=== PATIENT | male | born 1955 | race Caucasian/White ===

== ENCOUNTER 2021-09-28 09:45 | Inpatient (IN) ==
[2021-09-28] MEDS ORDERED: CEFEPIME 2,000 MG/20 ML VIAL IV STA (10:28)
[2021-09-28] MEDS ORDERED: SODIUM CHLORIDE 0.9% 1000ML 1,000 ML IV ONE (10:28)
--- NOTE | 2021-09-28 10:40 | Emergency Department Note ---
Impression & Plan Weakness, Fever, Anemia, Acute UTI, COVID-19 ED Provider Note NAME: JACK OCHOA AGE: 65 SEX: M : 1955 ARRIVES VIA: Ambulance INFORMANT: [Patient][ems, nursing] ED PROVIDER(S): [Bentley Garrett MD] CHIEF COMPLAINT: Weakness, fever HISTORY OF PRESENT ILLNESS: The patient is a 65-year-old male with a chronic indwelling Donovan catheter. He apparently started having a fever yesterday. He was weak yesterday as well. His symptoms continued today. EMS did give the patient some oral Tylenol for a temperature of 100.5. He also received a 500 cc saline bolus prior to arrival. The patient is a very poor historian. He does deny pain or shortness of breath. He admits to feeling weak. Given the mental state, no further history obtainable. There was no one with him at the bedside during my evaluation. As per the nursing staff, the patient's Donovan catheter was recently changed. REVIEW OF SYSTEMS: Unobtainable given the mental state. PMHx/PSHx: See Below SOCIAL HISTORY: See Below. PHYSICAL EXAM: GENERAL: Patient is in no acute distress. HEENT: No acute trauma, normocephalic atraumatic, mucous membranes moist, no nasal congestion, no scleral icterus. NECK: No stridor, no adenopathy, no meningismus, trachea is midline. LUNGS: Clear to auscultation bilaterally, no wheeze, no rhonchi, breath sounds equal. Moist cough noted. HEART: Without murmurs gallops or rubs, regular rate and rhythm. ABDOMEN: Soft, nontender, bowel sounds positive, no hernias, no peritonitis. Donovan catheter noted. EXTREMITIES: No cyanosis or edema, full range of motion of all the joints without pain or difficulty, no signs for acute trauma. NEUROLOGIC: Poor historian, no focal motor deficits. Awake and alert. SKIN: No rash, no jaundice, no diaphoresis. Rectal: Brown stool, heme-negative. DIFFERENTIAL DIAGNOSIS: Sepsis, UTI, COVID-19, influenza, pneumonia, metabolic abnormality, electrolyte abnormalities, cardiac sources, cellulitis, bacteremia, intracerebral event, toxicologic etiology, neurologic event, as well as other pathologies. EMERGENCY DEPARTMENT COURSE/PROCEDURES: ECG: Indication was weakness. The ECG shows a sinus rhythm with a first- degree AV block. There is a right bundle branch block. The rate is 79. There is no ST elevation, no PVCs. The QTc is 449. Continuous Cardiac Monitoring: An order was placed for continuous cardiac monitoring. The monitor shows a rate of 78 with sinus rhythm with a first- degree AV block. Critical Care Note: I have personally spent 44 minutes of critical care time in the direct management of this patient. This includes bedside care, interpretation of diagnostic studies, and testing, discussion with consultants, patient, and family members, and other required patient management activities. This 44 minutes is in excess of all separately billable procedures. MEDICAL DECISION MAKING: There is no leukocytosis. The patient is anemic and this is a 2 or three-point drop for the patient. Rectal exam was performed and the stool was brown and heme-negative. The patient has a lower platelet count, this has been documented before. No coagulopathy. There is some renal insufficiency but this is baseline looking back at previous testing. Lactic acid level is not elevated making severe sepsis less likely. Alk phos slightly elevated but the remaining liver enzymes were unremarkable. ECG shows a sinus rhythm, no obvious acute ischemia. Cardiac enzyme testing x1 is not consistent with acute cardiac injury. Urinalysis is consistent with infection. Anaplasmosis and Babesia smears were negative. Lyme disease testing returned negative. COVID test returned positive. Influenza and RSV test returned negative. Chest x-ray did not show pneumonia or CHF. The patient presents with fever and weakness. He appears to have a UTI as well as COVID-19. Both of course could be causing his issues. The patient received IV saline, 1 L, he was given IV cefepime. I did speak with the patient and his family, I spoke with case management. The patient is in need of a hospital stay. The on-call hospitalist was consulted. 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 Herrera Status post exploratory laparotomy 2005 after fall from roof with multiple injuries Status post tracheostomy Family History Mother Stroke Kidney disease Father Coronary heart disease Sister Diabetes Sister No problems noted. Social History Smoking Status: Current every day smoker Tobacco Type: Cigarettes Cigarettes Per Day: 1/2 pack per day; Second Hand Exposure: Yes; Hx Alcohol Use: No Hx Substance Use: No Preferred Language: Serbian Communication Ability: Effective Visual Impairment: No Limitations Research And Development Tester Required: No Beliefs That Will Affect Care: None marital status: Current Living Situation: Spouse Current Living Situation Comment: LIVES [facility] AND SON current occupational status: disabled Feels Safe at Home: Yes Assistive Devices: Walker Allergies Allergies Allergy/AdvReac Type Severity Reaction Status Date / Time varenicline [From Chantix] Allergy Intermediate Rash Verified 09/28/21 12:53 amlodipine Allergy Unknown UNKNOWN Verified 09/28/21 12:53 bupropion Allergy Unknown UNKNOWN Verified 09/28/21 12:53 losartan Allergy Unknown UNKNOWN Verified 09/28/21 12:53 niacin Allergy Unknown UNKNOWN Verified 09/28/21 12:53 nicotine Allergy Unknown UNKNOWN Verified 09/28/21 12:53 adhesive AdvReac Mild Erythema Verified 09/28/21 12:53 Home Meds Home Medications Medication Instructions Recorded Confirmed amlodipine 5 mg tablet 5 mg PO DAILY 05/15/18 09/28/21 atenolol 50 mg tablet 100 mg PO DAILY 05/15/18 09/28/21 atorvastatin 80 mg tablet 80 mg PO HS 05/15/18 09/28/21 clopidogrel 75 mg tablet (Plavix) 75 mg PO DAILY 05/15/18 09/28/21 lisinopril 40 mg tablet 40 mg PO DAILY 05/15/18 09/28/21 potassium chloride 20 mEq 20 meq PO DAILY 05/15/18 09/28/21 tablet,extended release prazosin 5 mg capsule 5 mg PO HS 05/15/18 09/28/21 trazodone 50 mg tablet 150 mg PO HS 05/15/18 09/28/21 cholecalciferol (vitamin D3) 25 2,000 unit PO DAILY 06/18/19 09/28/21 mcg (1,000 unit) tablet (Vitamin D3) cranberry 500 mg capsule 500 mg PO BID 08/24/20 09/28/21 insulin glargine 100 unit/mL 35 unit SUBCUT DAILY ml 08/24/20 09/28/21 subcutaneous solution (Lantus U-100 Insulin) venlafaxine 75 mg tablet 225 mg PO QAM tab 09/24/20 09/28/21 acetaminophen 325 mg tablet 650 mg PO QID PRN 09/28/21 09/28/21 ciclopirox 0.77 % topical cream 1 applic TOPICAL BID 09/28/21 09/28/21 dextrose 1 gram chewable tablet 4 g PO USEASDIRECTD 09/28/21 09/28/21 (Glucose Bits) fluocinonide 0.05 % topical 1 applic TOPICAL BID PRN 09/28/21 09/28/21 ointment hydroxyzine HCl 25 mg tablet 25 mg PO DAILY PRN 09/28/21 09/28/21 miconazole nitrate 2 % topical 1 applic TOPICAL DAILY PRN 09/28/21 09/28/21 ointment (Remedy Phytoplex Antifungal) triamcinolone acetonide 0.1 % 1 applic TOPICAL DAILY 09/28/21 09/28/21 topical cream Previous Rx's Medication Instructions Recorded isosorbide mononitrate 60 mg 60 mg PO DAILY #30 tab 04/29/19 tablet,extended release 24 hr Results & Data (ED) Vital Signs Vital Signs - 24 hr 09/28/21 09:55 09/28/21 10:04 09/28/21 10:06 Temperature 37.8 C H Temperature Source Oral Pulse Rate 78 83 Pulse Rate from SpO2 Sensor 86 Respiratory Rate 17 17 Respiratory Effort / Characteristics Non-Labored Respiratory Depth Normal Respiratory Pattern Regular Blood Pressure 141/71 H Blood Pressure Mean 94 Blood Pressure Position Semi-fowlers Pulse Oximetry 95 94 Oxygen Delivery Method Room Air Room Air Sepsis Recent Fever Within 48 Hours Yes Sepsis New/Unexplained Change in Mental Status Yes Sepsis Action Taken by Nursing No Action Required 09/28/21 10:30 09/28/21 11:00 09/28/21 11:11 Temperature Temperature Source Pulse Rate 75 74 73 Pulse Rate from SpO2 Sensor 73 Respiratory Rate 22 24 24 Respiratory Effort / Characteristics Respiratory Depth Respiratory Pattern Blood Pressure 135/61 Blood Pressure Mean 85 Blood Pressure Position Pulse Oximetry 94 Oxygen Delivery Method Sepsis Recent Fever Within 48 Hours Sepsis New/Unexplained Change in Mental Status Sepsis Action Taken by Nursing 09/28/21 11:30 09/28/21 12:00 09/28/21 12:30 Temperature Temperature Source Pulse Rate 75 73 71 Pulse Rate from SpO2 Sensor 75 73 71 Respiratory Rate 21 22 22 Respiratory Effort / Characteristics Respiratory Depth Respiratory Pattern Blood Pressure 152/69 H 145/68 H Blood Pressure Mean 96 93 Blood Pressure Position Pulse Oximetry 95 94 95 Oxygen Delivery Method Sepsis Recent Fever Within 48 Hours Sepsis New/Unexplained Change in Mental Status Sepsis Action Taken by Nursing 09/28/21 13:00 09/28/21 13:30 09/28/21 14:00 Temperature Temperature Source Pulse Rate 72 74 Pulse Rate from SpO2 Sensor 73 73 72 Respiratory Rate 23 25 H Respiratory Effort / Characteristics Respiratory Depth Respiratory Pattern Blood Pressure 148/75 H 155/90 H 149/64 H Blood Pressure Mean 99 111 92 Blood Pressure Position Pulse Oximetry 93 95 95 Oxygen Delivery Method Room Air Room Air Room Air Sepsis Recent Fever Within 48 Hours Sepsis New/Unexplained Change in Mental Status Sepsis Action Taken by Nursing 09/28/21 14:30 09/28/21 15:00 09/28/21 15:30 Temperature Temperature Source Pulse Rate 71 73 69 Pulse Rate from SpO2 Sensor 72 74 69 Respiratory Rate 22 23 23 Respiratory Effort / Characteristics Respiratory Depth Respiratory Pattern Blood Pressure 159/76 H 175/89 H 156/74 H Blood Pressure Mean 103 117 101 Blood Pressure Position Pulse Oximetry 95 95 95 Oxygen Delivery Method Room Air Sepsis Recent Fever Within 48 Hours Sepsis New/Unexplained Change in Mental Status Sepsis Action Taken by Detention Medications Current Medication List: was personally reviewed by me Laboratory Data Attestation: I reviewed the patient's lab results. Result diagrams: 09/28/21 10:15 09/28/21 11:08 Lab Results 09/28/21 09/28/21 09/28/21 Range/Units 10:10 10:15 10:15 WBC 6.64 (4.8-10.8) K/uL RBC 3.18 L (4.7-6.1) M/uL Hgb 9.8 L (14.0-18.0) g/dL Hct 29.5 L (42-52) % MCV 92.8 (80-100) fL MCH 30.8 (25-34) pg MCHC 33.2 (32-36) g/dL RDW Std Deviation 49.5 H (36.4-46.3) fL RDW Coeff of Stephania 14.5 (11.5-14.5) % Plt Count 116 L (130-400) K/uL MPV 10.6 H (7.4-10.4) fL Immature Gran % (Auto) 0.3 % Neut % (Auto) 76.5 % Lymph % (Auto) 10.1 % [place] % (Auto) 9.0 % Eos % (Auto) 3.8 % Baso % (Auto) 0.3 % Neut # (Auto) 5.08 (1.4-6.5) K/uL Lymph # (Auto) 0.67 L (1.2-3.4) K/uL [place] # (Auto) 0.60 H (0.11-0.59) K/uL Eos # (Auto) 0.25 (0-0.5) K/uL Baso # (Auto) 0.02 (0-0.2) K/uL Immature Gran # (Auto) 0.02 (0.00-0.02) K/uL PT (9.0-12.0) Seconds INR (0.9-1.1) APTT (21.0-31.0) Seconds PTT Ratio Sodium 135 L (136-145) mmol/L Potassium (3.5-5.1) mmol/L Chloride 107 (98-107) mmol/L Carbon Dioxide 24 (21-32) mmol/L Anion Gap 4 (3-11) BUN 34 H (6-23) mg/dl Creatinine 1.78 H (0.6-1.4) mg/dl Est Cr Clr Drug Dosing 44.2 ml/min Est GFR ( Amer) 44.8 ml/min Est GFR (Non-Af Amer) 38.6 ml/min BUN/Creatinine Ratio 19.1 (10-20) Glucose 148 H (70-99(Fasting)) mg/dl Lactate (0.4-2.0) mmol/L Calcium 8.5 (8.5-10.1) mg/dl Magnesium 1.9 (1.7-2.4) mg/dl Total Bilirubin 0.4 (0.2-1.0) mg/dl AST (13-39) U/L ALT 22 (7-52) U/L Alkaline Phosphatase 122 H (34-104) U/L Troponin I High Sens 12.1 (0-20) pg/ml Total Protein 7.2 (6.0-8.3) gm/dl Albumin 3.4 (3.4-5.0) gm/dl Globulin 3.8 (2.5-4.0) gm/dl Albumin/Globulin Ratio 0.9 (0.9-2) Procalcitonin (0-0.5) ng/ml Urine Color Yellow Urine Appearance Cloudy A (Clear) Urine pH 7.0 (4.5-7.5) Ur Specific [place] 1.014 (1.000-1.030) Urine Protein 2+ H (Negative) Urine Glucose (UA) Negative (Negative) Urine Ketones Negative (Negative) Urine Blood Trace H (Negative) Urine Nitrite Positive A (Negative) Urine Bilirubin Negative (Negative) Urine Urobilinogen Negative (Negative) Ur Leukocyte Esterase 2+ H (Negative) Urine WBC (Auto) >30 H (0-5) /hpf Urine RBC (Auto) 0-4 (0-4) /hpf U Hyaline Cast (Auto) 1-5 (0-5) /lpf U Epithel Cells (Auto) 5-10 H (0-5) /lpf Urine Bacteria (Auto) 4+ H (Negative) Anaplasma Smear See Comment Babesia Smear See Comment Lyme Disease IgG Ab (Negative) Lyme Disease IgM Ab (Negative) SARS-CoV-2 (PCR) (Negative) Influenza Type A (PCR) (Neg) Influenza Type B (PCR) (Neg) RSV (RT-PCR) (Neg) SARS-CoV-2, RNA, NAAT (NEGATIVE) 09/28/21 09/28/21 09/28/21 Range/Units 10:15 11:08 11:08 WBC (4.8-10.8) K/uL RBC (4.7-6.1) M/uL Hgb (14.0-18.0) g/dL Hct (42-52) % MCV (80-100) fL MCH (25-34) pg MCHC (32-36) g/dL RDW Std Deviation (36.4-46.3) fL RDW Coeff of Stephania (11.5-14.5) % Plt Count (130-400) K/uL MPV (7.4-10.4) fL Immature Gran % (Auto) % Neut % (Auto) % Lymph % (Auto) % [place] % (Auto) % Eos % (Auto) % Baso % (Auto) % Neut # (Auto) (1.4-6.5) K/uL Lymph # (Auto) (1.2-3.4) K/uL [place] # (Auto) (0.11-0.59) K/uL Eos # (Auto) (0-0.5) K/uL Baso # (Auto) (0-0.2) K/uL Immature Gran # (Auto) (0.00-0.02) K/uL PT 11.9 (9.0-12.0) Seconds INR 1.1 (0.9-1.1) APTT 25.9 (21.0-31.0) Seconds PTT Ratio 0.9 Sodium (136-145) mmol/L Potassium (3.5-5.1) mmol/L Chloride (98-107) mmol/L Carbon Dioxide (21-32) mmol/L Anion Gap (3-11) BUN (6-23) mg/dl Creatinine (0.6-1.4) mg/dl Est Cr Clr Drug Dosing ml/min Est GFR ( Amer) ml/min Est GFR (Non-Af Amer) ml/min BUN/Creatinine Ratio (10-20) Glucose (70-99(Fasting)) mg/dl Lactate 0.6 (0.4-2.0) mmol/L Calcium (8.5-10.1) mg/dl Magnesium (1.7-2.4) mg/dl Total Bilirubin (0.2-1.0) mg/dl AST (13-39) U/L ALT (7-52) U/L Alkaline Phosphatase (34-104) U/L Troponin I High Sens (0-20) pg/ml Total Protein (6.0-8.3) gm/dl Albumin (3.4-5.0) gm/dl Globulin (2.5-4.0) gm/dl Albumin/Globulin Ratio (0.9-2) Procalcitonin < 0.05 (0-0.5) ng/ml Urine Color Urine Appearance (Clear) Urine pH (4.5-7.5) Ur Specific [place] (1.000-1.030) Urine Protein (Negative) Urine Glucose (UA) (Negative) Urine Ketones (Negative) Urine Blood (Negative) Urine Nitrite (Negative) Urine Bilirubin (Negative) Urine Urobilinogen (Negative) Ur Leukocyte Esterase (Negative) Urine WBC (Auto) (0-5) /hpf Urine RBC (Auto) (0-4) /hpf U Hyaline Cast (Auto) (0-5) /lpf U Epithel Cells (Auto) (0-5) /lpf Urine Bacteria (Auto) (Negative) Anaplasma Smear Babesia Smear Lyme Disease IgG Ab Negative (Negative) Lyme Disease IgM Ab Negative (Negative) SARS-CoV-2 (PCR) (Negative) Influenza Type A (PCR) (Neg) Influenza Type B (PCR) (Neg) RSV (RT-PCR) (Neg) SARS-CoV-2, RNA, NAAT (NEGATIVE) 09/28/21 09/28/21 09/28/21 Range/Units 11:08 11:09 11:09 WBC (4.8-10.8) K/uL RBC (4.7-6.1) M/uL Hgb (14.0-18.0) g/dL Hct (42-52) % MCV (80-100) fL MCH (25-34) pg MCHC (32-36) g/dL RDW Std Deviation (36.4-46.3) fL RDW Coeff of Stephania (11.5-14.5) % Plt Count (130-400) K/uL MPV (7.4-10.4) fL Immature Gran % (Auto) % Neut % (Auto) % Lymph % (Auto) % [place] % (Auto) % Eos % (Auto) % Baso % (Auto) % Neut # (Auto) (1.4-6.5) K/uL Lymph # (Auto) (1.2-3.4) K/uL [place] # (Auto) (0.11-0.59) K/uL Eos # (Auto) (0-0.5) K/uL Baso # (Auto) (0-0.2) K/uL Immature Gran # (Auto) (0.00-0.02) K/uL PT (9.0-12.0) Seconds INR (0.9-1.1) APTT (21.0-31.0) Seconds PTT Ratio Sodium (136-145) mmol/L Potassium 4.5 (3.5-5.1) mmol/L Chloride (98-107) mmol/L Carbon Dioxide (21-32) mmol/L Anion Gap (3-11) BUN (6-23) mg/dl Creatinine (0.6-1.4) mg/dl Est Cr Clr Drug Dosing ml/min Est GFR ( Amer) ml/min Est GFR (Non-Af Amer) ml/min BUN/Creatinine Ratio (10-20) Glucose (70-99(Fasting)) mg/dl Lactate (0.4-2.0) mmol/L Calcium (8.5-10.1) mg/dl Magnesium (1.7-2.4) mg/dl Total Bilirubin (0.2-1.0) mg/dl AST 15 (13-39) U/L ALT (7-52) U/L Alkaline Phosphatase (34-104) U/L Troponin I High Sens (0-20) pg/ml Total Protein (6.0-8.3) gm/dl Albumin (3.4-5.0) gm/dl Globulin (2.5-4.0) gm/dl Albumin/Globulin Ratio (0.9-2) Procalcitonin (0-0.5) ng/ml Urine Color Urine Appearance (Clear) Urine pH (4.5-7.5) Ur Specific [place] (1.000-1.030) Urine Protein (Negative) Urine Glucose (UA) (Negative) Urine Ketones (Negative) Urine Blood (Negative) Urine Nitrite (Negative) Urine Bilirubin (Negative) Urine Urobilinogen (Negative) Ur Leukocyte Esterase (Negative) Urine WBC (Auto) (0-5) /hpf Urine RBC (Auto) (0-4) /hpf U Hyaline Cast (Auto) (0-5) /lpf U Epithel Cells (Auto) (0-5) /lpf Urine Bacteria (Auto) (Negative) Anaplasma Smear Babesia Smear Lyme Disease IgG Ab (Negative) Lyme Disease IgM Ab (Negative) SARS-CoV-2 (PCR) POSITIVE A* (Negative) Influenza Type A (PCR) Negative (Neg) Influenza Type B (PCR) Negative (Neg) RSV (RT-PCR) Negative (Neg) SARS-CoV-2, RNA, NAAT POSITIVE A* (NEGATIVE) Administered Medications Discontinued Medications Sodium Chloride (Nss 1000ml) 1,000 mls @ 999 mls/hr IV .[id number] ONE Stop: 09/28/21 11:28 Last Infusion: 09/28/21 12:18 Dose: 0 mls/hr Documented by: [id number] Admin: 09/28/21 11:13 Dose: 999 mls/hr Documented by: [id number] Cefepime HCl (Maxipime) 2,000 mg in 20 mls @ 5 mls/min IV NOW STA; Protocol Stop: 09/28/21 10:31 Last Admin: 09/28/21 11:13 Dose: 5 mls/min Documented by: [id number] Imaging Data Radiologist's Impression: Chest X-Ray 09/28/21 10:29 XR chest 1V portable CLINICAL HISTORY: SEPSIS. COMPARISON STUDY: 06/19/2019 TECHNIQUE: 1 view of the chest FINDINGS: Single frontal view of the chest demonstrates the cardiomediastinal silhouette to be within normal limits. There is again asymmetric elevation of the right hemidiaphragm. The lungs are clear of alveolar opacities. There is no evidence for pleural effusion. There is no evidence for vascular congestion. There is no acute osseous pathology. IMPRESSION: 1. No acute cardiopulmonary disease. ACT 112: Negative or not required by law. Electronically signed by: Shawn Jeter M.D. 09/28/2021 10:53 AM Discharge Plan Visit Data Chief Complaint: Illness Stated Complaint: AMS/Illness ED Provider: Bentley Garrett Discharge Problem: Weakness, Fever, Anemia, Acute UTI, COVID-19 Patient Disposition: Admitted As Inpatient Condition: Fair Forms Stand Alone Forms: My [facility] Prescriptions Prescriptions: No Action Lantus U-100 Insulin 100 unit/mL solution 35 unit SUBCUT DAILY RF: 0 cranberry 500 mg capsule 500 mg PO BID RF: 0 atorvastatin 80 mg Tablet 80 mg PO HS RF: 0 trazodone 50 mg Tablet 150 mg PO HS RF: 0 clopidogrel [Plavix] 75 mg Tablet 75 mg PO DAILY RF: 0 amlodipine 5 mg Tablet 5 mg PO DAILY RF: 0 prazosin 5 mg Capsule 5 mg PO HS RF: 0 lisinopril 40 mg Tablet 40 mg PO DAILY RF: 0 atenolol 50 mg Tablet 100 mg PO DAILY RF: 0 potassium chloride 20 mEq Tablet Extended Release 20 meq PO DAILY RF: 0 venlafaxine 75 mg tablet 225 mg PO QAM RF: 0 isosorbide mononitrate 60 mg tablet extended release 24 hr 60 mg PO DAILY Qty: 30 RF: 6 cholecalciferol (vitamin D3) [Vitamin D3] 25 mcg (1,000 unit) Tablet 2,000 unit PO DAILY RF: 0 acetaminophen 325 mg Tablet 650 mg PO QID PRN (Reason: Pain) RF: 0 fluocinonide 0.05 % Ointment 1 applic TOPICAL BID PRN (Reason: Itching) RF: 0 triamcinolone acetonide 0.1 % Cream 1 applic TOPICAL DAILY RF: 0 Remedy Phytoplex Antifungal 2 % Ointment 1 applic TOPICAL DAILY PRN (Reason: Rash) RF: 0 hydroxyzine HCl 25 mg Tablet 25 mg PO DAILY PRN (Reason: Itching) RF: 0 ciclopirox 0.77 % cream 1 applic TOPICAL BID RF: 0 Glucose Bits 1 gram Tablet,Chewable 4 g PO USEASDIRECTD RF: 0 Referrals Referrals: Cornelio Daley DO [Primary Care Provider] -
[2021-09-28 10:45] LABS: Basophils # (auto) 0.02 K/uL (0-0.2); Basophils % (auto) 0.3 %; Eosinophils # (auto) 0.25 K/uL (0-0.5); Eosinophils % (auto) 3.8 %; Hematocrit (blood only) 29.5 % (42-52); Hemoglobin 9.8 g/dL (14.0-18.0); Immature Granulocytes # (auto) 0.02 K/uL (0.00-0.02); Immature Granulocytes % (auto) 0.3 %; Lymphocytes # (auto) 0.67 K/uL (1.2-3.4); Lymphocytes % (auto) 10.1 %; Mean Corpuscular Hemoglobin 30.8 pg (25-34); Mean Corpuscular Hgb Conc 33.2 g/dL (32-36); Mean Corpuscular Volume 92.8 fL (80-100); Mean Platelet Volume 10.6 fL (7.4-10.4); Neutrophils # (auto) 5.08 K/uL (1.4-6.5); Neutrophils % (auto) 76.5 %; Platelet Count 116 K/uL (130-400); RDW Coefficient of Variation 14.5 % (11.5-14.5); RDW Standard Deviation 49.5 fL (36.4-46.3); Red Blood Count 3.18 M/uL (4.7-6.1); White Blood Count 6.64 K/uL (4.8-10.8)
--- NOTE | 2021-09-28 10:54 | XRay Report ---
XR chest 1V portable CLINICAL HISTORY: SEPSIS. COMPARISON STUDY: 06/19/2019 TECHNIQUE: 1 view of the chest FINDINGS: Single frontal view of the chest demonstrates the cardiomediastinal silhouette to be within normal li mits. There is again asymmetric elevation of the right hemidiaphragm. The lungs are clear of alveolar opacities. There is no evidence for pleural effusion. There is no evidence for vascular congestion. There is no acute osseous pathology. IMPRESSION: 1. No acute cardiopulmonary disease. ACT 112: Negative or not required by law. Electronically signed by: Shawn Jeter M.D. 09/28/2021 10:53 AM
[2021-09-28 11:05] LABS: Appearance Urine Cloudy (Clear); Bacteria Urine Automated 4+ (Negative); Bilirubin Urine Negative (Negative); Blood Urine Trace (Negative); Color Urine Yellow; Glucose Urine UA Negative (Negative); Ketones Urine Negative (Negative); Leukocyte Esterase Urine 2+ (Negative); Nitrite Urine Positive (Negative); Protein Urine 2+ (Negative); RBC Urine Automated 0-4 /hpf (0-4); Specific Gravity Urine 1.014 (1.000-1.030); Urobilinogen Urine Negative (Negative); WBC Urine Automated >30 /hpf (0-5)
[2021-09-28 11:19] LABS: Albumin Globulin Ratio 0.9 (0.9-2); Albumin Level 3.4 gm/dl (3.4-5.0); BUN Creatinine Ratio 19.1 (10-20); Bilirubin,Total 0.4 mg/dl (0.2-1.0); Calcium 8.5 mg/dl (8.5-10.1); Creatinine Clr Calc Pharmacy 44.2 ml/min; Est GFR (African American) 44.8 ml/min; Est GFR (Non-African American) 38.6 ml/min; Globulin 3.8 gm/dl (2.5-4.0); Magnesium 1.9 mg/dl (1.7-2.4); Total Protein 7.2 gm/dl (6.0-8.3); Troponin I High Sensitivity 12.1 pg/ml (0-20)
[2021-09-28 11:44] LABS: INR 1.1 (0.9-1.1); Partial Thromboplastin Ratio 0.9; Partial Thromboplastin Time 25.9 Seconds (21.0-31.0); Prothrombin Time 11.9 Seconds (9.0-12.0)
[2021-09-28 11:56] LABS: Procalcitonin < 0.05 ng/ml (0-0.5)
[2021-09-28 12:05] LABS: Influenza A virus by PCR Negative (Neg); Influenza B virus by PCR Negative (Neg); RSV by PCR Negative (Neg)
[2021-09-28 12:05] LABS: Potassium 4.5 mmol/L (3.5-5.1)
--- NOTE | 2021-09-28 12:55 | History & Physical Report ---
Date of Service September 28, 2021 Assessment & Plan (1) Generalized weakness: (2) Fever: Plan: Patient is a 65-year-old male with PMH DM II, HTN, dyslipidemia, CVA, vascular dementia, CAD, CKD III/IV, neurogenic bladder with history chronic Donovan cath, chronic anemia, MARILEE, tobacco use presented to ER with complaint of weakness starting yesterday. Reported temp 99.5F yesterday. Denies SOB, CP, falls, abdominal pain, N/V/D. Denies change in color of urine Generalized weakness likely secondary to underlying infection Fever. Underlying cause may be secondary to COVID-19, possible UTI, or abdominal abscess. Does not meet SIRS criteria. In ER T37.8C, P: 78, R: 17, BP 141/71, 95% on room air. No leukocytosis, lactate: 0.6, procalcitonin negative, UA +nitrite and leuk esterace, 4+bacteria. +COVID-19 PCR. CXR unremarkable Urine culture pending Blood culture pending Obtain CT abdomen pelvis to further assess known fluid collection In ER given cefepime Will continue cefepime MRSA swab pending CBC, BMP in a.m. (3) COVID-19: Plan: No hypoxia. CXR unremarkable. + SARS-CoV-2 PCR in ER Received COVID-19 vaccinations and 1 booster Airborne isolation Monitor for any hypoxia or respiratory symptoms and consider further treatment at that time. (4) Draining cutaneous sinus tract: Plan: Reported discharge from abdomen for the past 1.5 years, with increased over past several months however has not noticed any increased drainage past several days. Evaluated by surgery here in [place] who did not feel comfortable with surgery here at [facility]. Patient was evaluated at [facility] general surgery on 09/21/2021 and surgery was recommended for suspected suture granuloma, however requires cardiac clearance Obtain CT abdomen pelvis to further assess fluid collection, R/O worsening May need to consider general surgery consult (5) Neurogenic bladder: Plan: Chronic Donovan cath Reported Donovan cath last changed 09/19/2021 UA possible infection. Urine culture pending On cefepime (6) Anemia: Plan: Acute on chronic anemia Hgb: 9.8. Baseline Hgb in the ' No reported hematochezia, melena. Negative Hemoccult stool in ER Anemia studies pending Monitor H&H (7) Coronary artery disease: Plan: History of multivessel disease. Last cardiac cath 04/2019 History cardiac cath 04/2019: Severe multivessel disease not amendable coronary intervention or surgical revascularization Denies chest pain, shortness of breath Continue Plavix, isosorbide, atorvastatin Aspirin was removed by cardiology in 2020 secondary to increased ecchymosis (8) Diabetes mellitus type 2 with complications: Plan: A1c: 7.9 in 07/2021 Continue basal insulin. NovoLog sliding scale per protocol (9) CKD (chronic kidney disease), stage III: Plan: CKD III/IV Cr: 1.78. Baseline Cr: 1.9-2.0 Monitor renal functions (10) Hypertension: Plan: Continue lisinopril, atenolol, amlodipine (11) Cerebrovascular disease: Plan: History multiple strokes in the past. Previously on Coumadin however was discontinued secondary to history of fall with multiple injuries Continue Plavix, atorvastatin (12) Dementia: Plan: Vascular dementia Monitor for delirium (13) Sleep apnea: Plan: Noncompliant with CPAP (14) Tobacco use: Plan: Denies nicotine patch. Reports history of hives from patch in past Smoking cessation encouraged DVT Prophylaxis Lovenox SQ Full Code as per discussion with pt and pt's Follows with Dr Cornelio Daley for routine care Pt was seen and care coordinated with Dr Rosa. See addendum History of Present Illness Primary Care Provider: Cornelio Daley DO Patient is a 65-year-old male with PMH DM II, HTN, dyslipidemia, CVA, vascular dementia, CAD, CKD III/IV, neurogenic bladder with history chronic Donovan cath, chronic anemia, MARILEE, tobacco use presented to ER with complaint of weakness starting yesterday. History obtained from patient and also with assistance from . reports that patient's baseline is oriented to person and place only. Patient usually walks with walker however was unable to walk today. He was feeling so weak that he wasn't able to smoke cigarette or drink his coffee today. Patient reports feels like has sore throat. Reports chronic dry cough that feels is from smoking. Denies SOB, chest pain. reports temperature yesterday was 99.5F. Donovan cath last changed 09/19/21. Gets changed monthly. Patient with history of drainage from umbilicus for past year and a half. Patients reports increased drainage from umbilicus has increased over past several months however has not noticed any increased drainage past several days. Changes dressing once a day however reports often soaks through the dressing. Recent CT abdomen pelvis showed large rim-enhancing fluid collection. He was evaluated by surgery here in [place] who did not feel comfortable with surgery here at [facility]. Patient was evaluated at [facility] general surgery on 09/21/2021 and surgery was recommended however needs cardiac clearance first. History cardiac cath 04/2019: Severe multivessel disease not amendable coronary intervention or surgical revascularization. Denies chills, diaphoresis, N/V/D/C, [place], dizziness, syncope, vision changes, neck pain, orthopnea, palpitations, choking, otalgia, rhinorrhea, abdominal pain, paresthesias, extremity edema, rashes, hematuria. Had 2 COVID vaccines and one booster. Denies ill contacts. In ER T37.8C, P: 78, R: 17, BP 141/71, 95% on room air. No leukocytosis, lactate: 0.6, procalcitonin negative, UA +nitrite and leuk esterace, 4+bacteria. +COVID-19 PCR. CXR unremarkable Allergies Allergy/AdvReac Type Severity Reaction Status Date / Time varenicline [From Chantix] Allergy Intermediate Rash Verified 09/28/21 12:53 amlodipine Allergy Unknown UNKNOWN Verified 09/28/21 12:53 bupropion Allergy Unknown UNKNOWN Verified 09/28/21 12:53 losartan Allergy Unknown UNKNOWN Verified 09/28/21 12:53 niacin Allergy Unknown UNKNOWN Verified 09/28/21 12:53 nicotine Allergy Unknown UNKNOWN Verified 09/28/21 12:53 adhesive AdvReac Mild Erythema Verified 09/28/21 12:53 Home Medications Medication Instructions Recorded Confirmed Type amlodipine 5 mg tablet 5 mg PO DAILY 05/15/18 09/28/21 History atenolol 50 mg tablet 100 mg PO DAILY 05/15/18 09/28/21 History atorvastatin 80 mg tablet 80 mg PO HS 05/15/18 09/28/21 History clopidogrel 75 mg tablet (Plavix) 75 mg PO DAILY 05/15/18 09/28/21 History lisinopril 40 mg tablet 40 mg PO DAILY 05/15/18 09/28/21 History potassium chloride 20 mEq 20 meq PO DAILY 05/15/18 09/28/21 History tablet,extended release prazosin 5 mg capsule 5 mg PO HS 05/15/18 09/28/21 History trazodone 50 mg tablet 150 mg PO HS 05/15/18 09/28/21 History isosorbide mononitrate 60 mg 60 mg PO DAILY #30 tab 04/29/19 09/28/21 Rx tablet,extended release 24 hr cholecalciferol (vitamin D3) 25 2,000 unit PO DAILY 06/18/19 09/28/21 History mcg (1,000 unit) tablet (Vitamin D3) cranberry 500 mg capsule 500 mg PO BID 08/24/20 09/28/21 History insulin glargine 100 unit/mL 35 unit SUBCUT DAILY ml 08/24/20 09/28/21 History subcutaneous solution (Lantus U-100 Insulin) venlafaxine 75 mg tablet 225 mg PO QAM tab 09/24/20 09/28/21 History acetaminophen 325 mg tablet 650 mg PO QID PRN 09/28/21 09/28/21 History ciclopirox 0.77 % topical cream 1 applic TOPICAL BID 09/28/21 09/28/21 History dextrose 1 gram chewable tablet 4 g PO USEASDIRECTD 09/28/21 09/28/21 History (Glucose Bits) fluocinonide 0.05 % topical 1 applic TOPICAL BID PRN 09/28/21 09/28/21 History ointment hydroxyzine HCl 25 mg tablet 25 mg PO DAILY PRN 09/28/21 09/28/21 History miconazole nitrate 2 % topical 1 applic TOPICAL DAILY PRN 09/28/21 09/28/21 History ointment (Remedy Phytoplex Antifungal) triamcinolone acetonide 0.1 % 1 applic TOPICAL DAILY 09/28/21 09/28/21 History topical cream Past Med/Surg History Medical History Anemia Cerebrovascular disease history of multiple strokes, first 1997 CKD (chronic kidney disease), stage III Coronary artery disease cardiac cath [facility] 04/29/19 severe multivessel disease Dementia 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 Herrera Status post exploratory laparotomy 2005 after fall from roof with multiple injuries Status post tracheostomy Family History Mother Stroke Kidney disease Father Coronary heart disease Sister Diabetes Sister No problems noted. Social History (Updated 09/28/21 @ 14:31 by Adelaide Gonzalez PA-C) Smoking Status: Current every day smoker Tobacco Type: Cigarettes Cigarettes Per Day: 1/2 pack per day; Second Hand Exposure: Yes; Hx Alcohol Use: No Hx Substance Use: No Preferred Language: Palestinian Communication Ability: Effective Visual Impairment: No Limitations Refueling Ramp Attendant Required: No Beliefs That Will Affect Care: None marital status: Current Living Situation: Spouse Current Living Situation Comment: LIVES [facility] AND SON current occupational status: disabled Feels Safe at Home: Yes Assistive Devices: Walker Review of Systems Review of Systems: All systems reviewed & are unremarkable except as noted in HPI & below Physical Exam Physical Exam: General: no acute distress, WDWN Head: normocephalic, atraumatic Eyes: PERRL, EOM's intact, conjunctiva non-injected, anicteric ENT: normal inspection external ears, nose, mucous membranes moist Neck: supple, trachea midline Lungs: clear, no respiratory distress, no wheezing/rhonchi/rales CV: RRR, no pretibial edema Abd: +purulent drainage from umbilicus without surrounding skin erythema, normal BS, soft, non-tender to palpation Ext: no cyanosis, no calf tenderness Neuro: Alert, oriented to person and place only, no focal deficits noted, normal affect Skin: warm, dry Results & Data Results & Data ([facility]) Vital Signs (Past 12 Hours) Vital Signs Temp Pulse Resp BP Pulse Ox 09/28/21 12:30 71 22 95 09/28/21 12:00 73 22 145/68 H 94 09/28/21 11:30 75 21 152/69 H 95 09/28/21 11:11 73 24 135/61 94 09/28/21 11:00 74 24 09/28/21 10:30 75 22 09/28/21 10:06 83 17 94 09/28/21 10:04 37.8 C H 78 17 141/71 H 95 Laboratory Results Short CBC 09/28/21 Range/Units 10:15 WBC 6.64 (4.8-10.8) K/uL Hgb 9.8 L (14.0-18.0) g/dL Hct 29.5 L (42-52) % Plt Count 116 L (130-400) K/uL BMP 09/28/21 09/28/21 10:15 11:08 Sodium 135 L Potassium 4.5 Chloride 107 Carbon Dioxide 24 BUN 34 H Creatinine 1.78 H Glucose 148 H Calcium 8.5 Liver Function 09/28/21 09/28/21 Range/Units 10:15 11:08 Total Bilirubin 0.4 (0.2-1.0) mg/dl AST 15 (13-39) U/L ALT 22 (7-52) U/L Alkaline Phosphatase 122 H (34-104) U/L Albumin 3.4 (3.4-5.0) gm/dl Urine 09/28/21 Range/Units 10:10 Urine Color Yellow Urine Appearance Cloudy A (Clear) Urine pH 7.0 (4.5-7.5) Ur Specific [place] 1.014 (1.000-1.030) Urine Protein 2+ H (Negative) Urine Glucose (UA) Negative (Negative) Diagnostic Findings Chest X-Ray 09/28/21 10:29 XR chest 1V portable CLINICAL HISTORY: SEPSIS. COMPARISON STUDY: 06/19/2019 TECHNIQUE: 1 view of the chest FINDINGS: Single frontal view of the chest demonstrates the cardiomediastinal silhouette to be within normal limits. There is again asymmetric elevation of the right hemidiaphragm. The lungs are clear of alveolar opacities. There is no evidence for pleural effusion. There is no evidence for vascular congestion. There is no acute osseous pathology. IMPRESSION: 1. No acute cardiopulmonary disease. ACT 112: Negative or not required by law. Electronically signed by: Shawn Jeter M.D. 09/28/2021 10:53 AM Supervising Physician Co-Signing Physician Notes History and physical exam performed by me. History notable for 65-year-old man with history of DM type II, hypertension, CVA, vascular dementia, CAD, CKD, neurogenic bladder with chronic Donovan, chronic anemia, tobacco use who presented with generalized weakness that started yesterday and fever at home. Reports chronic cough, unchanged. Denies shortness of breath, chest pain Physical exam notable for elderly man in no obvious distress, surgical scar on abdomen with dressing over umbilicus area with purulent drainage. Abdomen is soft, nontender, nondistended with normal bowel sounds. Chronic Donovan in situ Lab work notable for hemoglobin of 9.8, platelet of 116, sodium of 135, creatinine of 1.78. Urinalysis was positive for nitrite and esterase, more than 30 WBC. Positive COVID test Chest x-ray did not show any acute abnormality Fever, generalized weakness COVID 19 infection Other possibilities include UTI Draining abd cutaneous sinus tract Patient does have history of abdominal wall collection that is being evaluated for surgery by [facility] surgery. was at bedside reports that drainage has increased over the past few months but not has not worsened in the past few days. We discussed need to evaluate that considering purulent drainage Patient and okay with CT abdomen with contrast ordered. May consider surgery evaluation if significant finding on CT abdomen pelvis Monitor renal function Continue cefepime Follow-up urine and blood cultures Check MRSA Patient is currently on room air. reported that patient is fully vaccinated and got 1. Was actually scheduled for second booster later this month Not a candidate for remdesivir considering renal function Monitor for now. Agree with other plans as detailed by Adelaide Gonzalez PA-C (1) Sleep apnea Sleep apnea type: obstructive Qualified Code(s): G47.33 - Obstructive sleep apnea (adult) (pediatric) (2) Coronary artery disease Associated angina: without angina Coronary Disease-Associated Artery/Lesion type: [place] artery [place] vs. transplanted heart: [place]q heart Qualified Code(s): I25.10 - Atherosclerotic heart disease of [place] coronary artery without angina pectoris (3) Hypertension Hypertension type: essential hypertension Qualified Code(s): I10 - Essential (primary) hypertension
[2021-09-28 13:56] LABS: Lyme Ab IgG w/WB Rflx Negative (Negative); Lyme Ab IgM w/WB Rflx Negative (Negative)
[2021-09-28 13:59] LABS: SARS CoV2 RNA(COVID-19) InHosp POSITIVE (Negative)
--- NOTE | 2021-09-28 14:57 | Electrocardiogram Report ---
Test Reason : Blood Pressure : / mmHG Vent. Rate : 079 BPM Atrial Rate : 079 BPM P-R Int : 220 ms QRS Dur : 140 ms QT Int : 392 ms P-R-T Axes : 057 027 012 degrees QTc Int : 449 ms Sinus rhythm with 1st degree A-V block Right bundle branch block Cannot rule out Inferior infarct , age undetermined Abnormal ECG When compared with ECG of 18-JUN-2019 16:31, Right bundle branch block is now Present Confirmed by Abiel Clarke ([id number]) on 09/28/2021 2:57:33 PM Referred By: REFERRED SELF Confirmed By:Vaibhav Clarke
[2021-09-28] MEDS ORDERED: OPTIRAY 320 100ml IV ONE (15:56)
--- NOTE | 2021-09-28 16:24 | CT Scan Report ---
CT SCAN OF THE ABDOMEN AND PELVIS WITH IV CONTRAST CLINICAL HISTORY: Fever. History of fluid collection. COMPARISON STUDY: Abdominal CT dated 08/26/2021. TECHNIQUE: Following the IV administration of 93 cc of Optiray 320, CT scan of the abdomen and pelvi s is performed from the lung bases to the proximal femora. Images are reviewed in the axial, sagittal , and coronal planes. IV contrast was administered without complication. A dose lowering technique wa s utilized adhering to the principles of ALARA. CT DOSE: 917.37 mGycm FINDINGS: Lung bases: The heart is normal in size and without pericardial effusion. The coronary arteries and m itral annulus are densely calcified. Chronic/fibrotic change is noted at the lung bases. There is no airspace consolidation typical for pneumonia or pleural effusion. There is a small hiatal hernia. Liver: The contrast-enhanced liver is normal in size, contour, and attenuation. There is no intrahepa tic biliary ductal dilatation. The hepatic veins and portal veins are patent. There is mild periporta l edema. Gallbladder: Not identified and presumed surgically absent. Spleen: Normal in size and attenuation. Pancreas: Unremarkable. Adrenal glands: Unremarkable. Kidneys: The contrast enhanced kidneys demonstrate cortical atrophy and are without hydronephrosis. T he kidneys enhance symmetrically. There is mild perinephric stranding. Urothelial thickening and enha ncement is seen involving the renal pelvis bilaterally with surrounding infiltration. Abdominal vasculature: The abdominal aorta is normal in course and caliber noting mild to moderate at herosclerotic calcification. An infrarenal IVC filter is in place. 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 Bowel: There is moderate colonic diverticulosis without CT evidence of acute diverticulitis. There is rectosigmoid fecal retention moderate constipation. No bowel obstruction is seen. The appendix is w ell-visualized and normal. Peritoneum: There is no intraperitoneal free air or abdominal ascites. Lymphadenopathy: None. Pelvic viscera: The bladder is decompressed around a Donovan catheter. The bladder wall appears markedl y thickened and there is pericystic infiltration. The prostate gland is mildly enlarged. The seminal vesicles are normal as visualized. Skeletal structures: The skeletal structures are osteopenic. There is mild to moderate lumbosacral sp ondylosis. Large posterior disc osteophyte complexes are seen at L4-L5 and L5-S1. There are healed ri ght-sided rib fractures. No lytic or blastic lesions are seen. Soft tissues: There is a midline surgical scar. There is significant soft tissue thickening deep to t he incision site with a thin fluid collection extending from the subxiphoid region to the upper pelvi s. This measures approximately 14 x 2.5 x 4.5 cm. This is similar to 08/26/2021 examinations, and delia ral calcifications suggest that this is chronic. A thin tract was collection approaches the dermal hobson rface as seen on image #263. IMPRESSION: 1. The bladder is decompressed around a Donovan catheter and appears circumferentially thick walled wit h surrounding inflammation. Additionally, there is urothelial thickening and enhancement with surroun ding inflammation involving the renal pelvis bilaterally. Correlate clinically and with urinalysis fo r evidence of cystitis/ascending urinary tract infections. 2. There is a thick-walled fluid collection within the ventral abdominal wall deep to a surgical inci andrew site. This is similar to the 08/26/2021 examination and appears chronic, possibly representing a seroma. The sterility of this fluid cannot be assessed by imaging and clinical correlation will be es sential. 3. Advanced coronary artery calcification. 4. Rectosigmoid fecal retention and moderate constipation. 5. 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 6. Additional findings as above. ACT 112: Negative or not required by law. Electronically signed by: Bentley Kelley M.D. 09/28/2021 4:22 PM
[2021-09-28] MEDS ORDERED: CARBOHYDRATES FOR HYPOGLYCEMIA PO PRN (19:26)
[2021-09-28] MEDS ORDERED: GLUCOSE 10 TABS/TUBE PO PRN (19:26)
[2021-09-28] MEDS ORDERED: ACETAMINOPHEN 325 MG TAB PO PRN (19:26)
[2021-09-28] MEDS ORDERED: ONDANSETRON INJ 2 MG/ML 2 ML VIAL IV PRN (19:26)
[2021-09-28] MEDS ORDERED: DEXTROSE 50% 50 ML SYRINGE IV PRN (19:26)
[2021-09-28] MEDS ORDERED: GLUCOSE 40% GEL 15 GM TUBE PO PRN (19:26)
[2021-09-28] MEDS ORDERED: POLYETHYLENE (MIRALAX) 17 GM PACK PO PRN (19:26)
[2021-09-28] MEDS ORDERED: GLUCAGON FOR INJ 1 MG VIAL SQ PRN (19:26)
[2021-09-28] MEDS ORDERED: VENLAFAXINE HCL 75 MG TAB PO SCH (20:00)
[2021-09-28] MEDS ORDERED: SODIUM CHLORIDE 0.9% 1000ML 1,000 ML IV SCH (20:00)
[2021-09-28] MEDS: INSULIN GLARGINE SOLOSTAR 100 UNITS/ML 3 ML PEN SC SCH (20:32)
[2021-09-28] MEDS: INSULIN ASPART PER UNIT SC SCH (20:33)
[2021-09-28] MEDS: ENOXAPARIN INJ 40 MG/0.4 ML SYR SQ SCH (20:34)
[2021-09-28] MEDS: amLODIPine BESYLATE 5 MG TAB PO SCH (20:35)
[2021-09-28] MEDS: ATENOLOL 50 MG TABLET PO SCH (20:35)
[2021-09-28] MEDS: ISOSORBIDE MONO EXTENDED REL 60 MG TABCR PO SCH (20:36)
[2021-09-28] MEDS: CLOPIDOGREL BISULFATE 75 MG TAB PO SCH (20:36)
[2021-09-28] MEDS: ATORVASTATIN 40 MG TAB PO SCH (20:36)
[2021-09-28] MEDS: lisinopril 40 MG TAB PO SCH (20:37)
[2021-09-28] MEDS: PRAZOSIN HCL 1 MG CAP PO SCH (20:37)
[2021-09-28] MEDS: traZODone HCL 50 MG TAB PO SCH (20:38)
[2021-09-28 20:59] LABS: C Reactive Protein 2.26 mg/dl (0-0.5)
[2021-09-28 21:19] LABS: Ferritin 94.3 ng/ml (8-388)
[2021-09-28 21:24] LABS: Folate (Folic Acid) 13.01 ng/ml (>5.38)
[2021-09-28] MEDS: CEFEPIME 2,000 MG in SYRINGE 0 ML IV SCH (22:57)
[2021-09-28] MEDS: VENLAFAXINE HCL XR 75 MG CAPXR PO SCH (22:58)
[2021-09-29 07:14] LABS: Hematocrit (blood only) 31.5 % (42-52); Hemoglobin 10.5 g/dL (14.0-18.0); Mean Corpuscular Hemoglobin 30.5 pg (25-34); Mean Corpuscular Hgb Conc 33.3 g/dL (32-36); Mean Corpuscular Volume 91.6 fL (80-100); RDW Coefficient of Variation 14.8 % (11.5-14.5); Red Blood Count 3.44 M/uL (4.7-6.1)
[2021-09-29 07:38] LABS: Calcium 8.3 mg/dl (8.5-10.1); Est GFR (African American) 44.5 ml/min; Est GFR (Non-African American) 38.4 ml/min; Potassium 4.5 mmol/L (3.5-5.1)
[2021-09-29 07:53] LABS: Mean Platelet Volume 10.3 fL (7.4-10.4); Platelet Count 98 K/uL (130-400)
[2021-09-29 07:58] LABS: Platelet Estimate Decreased (Normal)
[2021-09-29] MEDS: INSULIN ASPART PER UNIT SC SCH ×4 (08:57→20:59)
[2021-09-29] MEDS: INSULIN GLARGINE SOLOSTAR 100 UNITS/ML 3 ML PEN SC SCH ×2 (08:57→20:59)
[2021-09-29] MEDS: VENLAFAXINE HCL XR 75 MG CAPXR PO SCH (09:01)
[2021-09-29] MEDS: ISOSORBIDE MONO EXTENDED REL 60 MG TABCR PO SCH (09:01)
[2021-09-29] MEDS: CLOPIDOGREL BISULFATE 75 MG TAB PO SCH (09:01)
[2021-09-29] MEDS: amLODIPine BESYLATE 5 MG TAB PO SCH (09:01)
[2021-09-29] MEDS: lisinopril 40 MG TAB PO SCH (09:01)
[2021-09-29] MEDS: CHOLECALCIFEROL 1,000 UNITS 25 MCG TAB PO SCH (09:02)
[2021-09-29] MEDS: POTASSIUM CHLORIDE CRTAB 20 MEQ TABCR PO SCH (09:02)
[2021-09-29] MEDS: ATENOLOL 50 MG TABLET PO SCH (09:02)
--- NOTE | 2021-09-29 10:27 | Hospitalist Progress Note ---
Date of Service September 29, 2021 Assessment & Plan (1) Generalized weakness: Plan: likely 2/2 infection. Cont treatment below. (2) COVID-19: Plan: No hypoxia. CXR unremarkable. + SARS-CoV-2 PCR in ER Received COVID-19 vaccinations and 1 booster Airborne isolation Monitor for any hypoxia or respiratory symptoms and consider further treatment at that time. (3) Catheter-associated urinary tract infection: Plan: Need to change belcher catheter in setting of infection. Cont cefepime pending urine culture (4) Draining cutaneous sinus tract: Plan: Reported discharge from abdomen for the past 1.5 years, with increased over past several months however has not noticed any increased drainage past several days. Evaluated by surgery here in [place] who did not feel comfortable with surgery here at [facility]. Patient was evaluated at [facility] general surgery on 09/21/2021 and surgery was recommended for suspected suture granuloma, however requires cardiac clearance as outpatient when he is feeling better. CT a/p reveals thick walled seroma-no evidence of abscess and no significant pain to palpation of abdomen. (5) Neurogenic bladder: Plan: Chronic Belcher cath-changed on 09/19 (6) Anemia: Plan: 2/2 chronic disease. Around baseline. No overt bleeding or need for transfusion. Cont to monitor. (7) Coronary artery disease: Plan: History of multivessel disease. Last cardiac cath 04/2019 History cardiac cath 04/2019: Severe multivessel disease not amendable coronary intervention or surgical revascularization Denies chest pain, shortness of breath Continue Plavix, isosorbide, atorvastatin Aspirin was removed by cardiology in 2020 secondary to increased ecchymosis (8) Diabetes mellitus type 2 with complications: Plan: A1c: 7.9 in 07/2021 Continue basal insulin. NovoLog sliding scale per protocol (9) CKD (chronic kidney disease), stage III: Plan: CKD III/IV Cr: 1.78. Baseline Cr: 1.9-2.0 Monitor renal functions (10) Hypertension: Plan: chronic, stable. Continue lisinopril, atenolol, amlodipine (11) Cerebrovascular disease: Plan: History multiple strokes in the past and now with vascular dementia. Previously on Coumadin however was discontinued secondary to history of fall with multiple injuries Continue Plavix, atorvastatin (12) Dementia: Plan: Vascular dementia--high risk for confusion in the hospital. Reorient as needed. (13) Sleep apnea: Plan: Noncompliant with CPAP (14) Tobacco use: Plan: Denies nicotine patch. Reports history of hives from patch in past Smoking cessation encouraged (15) DVT prophylaxis: Plan: Lovenox Full Code Dispo-to home in 1-2 days. I spoke wtih his this evening and gave her an update that he is improved. She thanked me and all questions were answered to h er satisfaction. Ina Mi DO [facility] Hospitalist Admission and Anticipated Discharge Date Admission Date: September 28, 2021 Subjective The patient is a 65-year-old man who arrived by ambulance for fever. Work-up revealed evidence of a catheter associated urinary tract infection and COVID- positive status. He received IV saline and cefepime and was admitted to medicine. Generalized weakness was present and patient was characterized as a poor historian. He has a known abdominal seroma that is complex and per Dr. Nieto, general surgeon, any investigation/exploration of this should be done at a tertiary care facility. He has known chronic indwelling Belcher catheter for history of neurogenic bladder. He is a diabetic currently on insulin. He does have CKD with his creatinine at baseline. Per 's report he was so weak yesterday, he couldn't even hold a coffee cup let alone stand independently. Today he is better and performed well with therapy. He is oriented to person and place (thinnks he is in [facility]) He is unable to really give any historial details other than feeling sick yesterday Today he is afebrile tolerating PO Denies cough or SOB Review of Systems Review of Systems: All systems were reviewed and negative except as indicated above. Physical Exam Physical Exam: CONSTITUTIONAL: WNWD, vitals as above, generally well- appearing, NAD EYES: normal conjunctivae, no scleral icterus ENT: external ear and nose normal, MMM NECK: trachea midline RESPIRATORY: clear to auscultation bilaterally, no crackles, rales or wheezes, normal respiratory effort CARDIOVASCULAR: regular rate and rhythm, S1 and 2 heard without murmurs, gallops or rubs, no JVD, no peripheral edema CHEST: inspection of chest was normal GASTROINTESTINAL: soft, nontender, ND, no guarding MUSCULOSKELETAL: generalized weakness, head is normocephalic and atraumatic, neck supple, normal palpation of chest wall without tenderness SKIN: warm and dry NEUROLOGIC: CN 2-12 grossly intact, no sensory deficit, normal cognition, normal speech, no tremor PSYCHIATRIC: alert cooperative and oriented to person, and place. Results & Data Results & Data ([facility]) Vital Signs (Past 12 Hours) Vital Signs Temp Pulse Pulse Resp BP BP Pulse Ox 09/29/21 08:40 36.8 C 71 18 123/74 95 09/29/21 07:24 69 09/29/21 03:48 37.2 C 73 20 113/63 93 09/29/21 01:55 70 09/28/21 23:04 36.9 C 69 18 178/74 H 95 Laboratory Results Short CBC 09/28/21 09/29/21 Range/Units 10:15 06:52 WBC 6.64 7.30 (4.8-10.8) K/uL Hgb 9.8 L 10.5 L (14.0-18.0) g/dL Hct 29.5 L 31.5 L (42-52) % Plt Count 116 L 98 L (130-400) K/uL BMP 09/28/21 09/28/21 09/29/21 10:15 11:08 06:52 Sodium 135 L 134 L Potassium 4.5 4.5 Chloride 107 105 Carbon Dioxide 24 20 L BUN 34 H 34 H Creatinine 1.78 H 1.79 H Glucose 148 H 188 H Calcium 8.5 8.3 L Liver Function 09/28/21 09/28/21 Range/Units 10:15 11:08 Total Bilirubin 0.4 (0.2-1.0) mg/dl AST 15 (13-39) U/L ALT 22 (7-52) U/L Alkaline Phosphatase 122 H (34-104) U/L Albumin 3.4 (3.4-5.0) gm/dl Urine 09/28/21 Range/Units 10:10 Urine Color Yellow Urine Appearance Cloudy A (Clear) Urine pH 7.0 (4.5-7.5) Ur Specific [place] 1.014 (1.000-1.030) Urine Protein 2+ H (Negative) Urine Glucose (UA) Negative (Negative) Medications Administered Current Inpatient Medications Acetaminophen (Acetaminophen 325 Mg Tab) 650 mg PO Q4H PRN PRN Reason: Pain or Fever Stop: 10/28/21 19:25 Amlodipine Besylate (Amlodipine Besylate 5 Mg Tab) 5 mg PO DAILY ZHAO Stop: 10/28/21 19:44 Last Admin: 09/29/21 09:01 Dose: 5 mg Documented by: Atenolol (Atenolol 50 Mg Tablet) 100 mg PO DAILY ZHAO Stop: 10/28/21 19:59 Last Admin: 09/29/21 09:02 Dose: 100 mg Documented by: Atorvastatin Calcium (Atorvastatin 40 Mg Tab) 80 mg PO HS ZHAO Stop: 10/28/21 20:59 Last Admin: 09/28/21 20:36 Dose: 80 mg Documented by: Clopidogrel Bisulfate (Clopidogrel Bisulfate 75 Mg Tab) 75 mg PO DAILY ZHAO Stop: 10/28/21 19:59 Last Admin: 09/29/21 09:01 Dose: 75 mg Documented by: Dextrose (Dextrose 50% 50 Ml Syringe) 25 - 50 ml IV UD PRN; Protocol PRN Reason: Hypoglycemia Protocol Stop: 10/28/21 19:25 Enoxaparin Sodium (Enoxaparin Inj 40 Mg/0.4 Ml Syr) 40 mg SQ Q24H ZHAO Stop: 10/28/21 19:59 Last Admin: 09/28/21 20:34 Dose: 40 mg Documented by: Glucagon (Glucagon For Inj 1 Mg Vial) 1 mg SQ UD PRN; Protocol PRN Reason: Hypoglycemia Protocol Stop: 10/28/21 19:25 Glucose (Glucose 10 Tabs/Tube) 4 - 8 tabs PO UD PRN; Protocol PRN Reason: Hypoglycemia Protocol Stop: 10/28/21 19:25 Glucose (Glucose 40% Gel 15 Gm Tube) 15 - 30 gm PO UD PRN; Protocol PRN Reason: Hypoglycemia Protocol Stop: 10/28/21 19:25 Cefepime HCl 2,000 mg/ Syringe 20 mls @ 5 mls/min IV Q12H ZHAO; Protocol Stop: 09/30/21 21:59 Last Admin: 09/28/21 22:57 Dose: 5 mls/min Documented by: Insulin Aspart (Insulin Aspart Per Unit) 0 units SC ACHS [facility] Stop: 10/28/21 20:59 Last Admin: 09/29/21 08:57 Dose: 5 units Documented by: Insulin Glargine (Insulin Glargine Solostar 100 Units/Ml 3 Ml Pen) 18 units SC BID [facility] Stop: 10/28/21 20:59 Last Admin: 09/29/21 08:57 Dose: 18 units Documented by: Isosorbide Mononitrate (Isosorbide [place] Extended Rel 60 Mg Tabcr) 60 mg PO DAILY ZHAO Stop: 10/28/21 19:59 Last Admin: 09/29/21 09:01 Dose: 60 mg Documented by: Lisinopril (Lisinopril 40 Mg Tab) 40 mg PO DAILY ZHAO Stop: 10/28/21 19:59 Last Admin: 09/29/21 09:01 Dose: 40 mg Documented by: Miscellaneous (Carbohydrates For Hypoglycemia ) 15 - 30 gm PO UD PRN PRN Reason: Hypoglycemia Protocol Stop: 10/28/21 19:25 Ondansetron HCl (Ondansetron Inj 2 Mg/Ml 2 Ml Vial) 4 mg IV Q6H PRN PRN Reason: Nausea Stop: 10/28/21 19:25 Polyethylene Glycol (Polyethylene (Miralax) 17 Gm Pack) 17 gm PO DAILY PRN PRN Reason: Constipation Stop: 10/28/21 19:25 Potassium Chloride (Potassium Chloride Crtab 20 Meq Tabcr) 20 meq PO DAILY ZHAO Stop: 10/29/21 08:59 Last Admin: 09/29/21 09:02 Dose: 20 meq Documented by: Prazosin HCl (Prazosin Hcl 1 Mg Cap) 5 mg PO HS ZHAO Stop: 10/28/21 20:59 Last Admin: 09/28/21 20:37 Dose: 5 mg Documented by: Trazodone HCl (Trazodone Hcl 50 Mg Tab) 150 mg PO HS [facility] Stop: 10/28/21 20:59 Last Admin: 09/28/21 20:38 Dose: 150 mg Documented by: Venlafaxine HCl (Venlafaxine Hcl Xr 75 Mg Capxr) 225 mg PO QAM [facility]O Stop: 10/28/21 19:59 Last Admin: 09/29/21 09:01 Dose: 225 mg Documented by: Vitamin D (Cholecalciferol 1,000 Units 25 Mcg Tab) 2,000 units PO DAILY ZHAO Stop: 10/29/21 08:59 Last Admin: 09/29/21 09:02 Dose: 2,000 units Documented by: (1) Sleep apnea Sleep apnea type: obstructive Qualified Code(s): G47.33 - Obstructive sleep apnea (adult) (pediatric) (2) Coronary artery disease Associated angina: without angina Coronary Disease-Associated Artery/Lesion type: [place] artery [place] vs. transplanted heart: [place] heart Qualified Code(s): I25.10 - Atherosclerotic heart disease of [place] coronary artery without angina pectoris (3) Hypertension Hypertension type: essential hypertension Qualified Code(s): I10 - Essential (primary) hypertension
[2021-09-29] MEDS: CEFEPIME 2,000 MG in SYRINGE 0 ML IV SCH ×2 (10:49→21:02)
[2021-09-29] MEDS: ENOXAPARIN INJ 40 MG/0.4 ML SYR SQ SCH (21:01)
[2021-09-29] MEDS: traZODone HCL 50 MG TAB PO SCH (21:02)
[2021-09-29] MEDS: ATORVASTATIN 40 MG TAB PO SCH (21:02)
[2021-09-29] MEDS: PRAZOSIN HCL 1 MG CAP PO SCH (21:02)
[2021-09-30] MEDS ORDERED: LACTATED RINGER'S 1,000 ML IV ONE (05:30)
[2021-09-30 06:14] LABS: Hematocrit (blood only) 29.3 % (42-52); Hemoglobin 9.9 g/dL (14.0-18.0); Mean Corpuscular Hemoglobin 30.5 pg (25-34); Mean Corpuscular Hgb Conc 33.8 g/dL (32-36); Mean Corpuscular Volume 90.2 fL (80-100); RDW Coefficient of Variation 14.7 % (11.5-14.5); RDW Standard Deviation 48.5 fL (36.4-46.3); Red Blood Count 3.25 M/uL (4.7-6.1); White Blood Count 5.96 K/uL (4.8-10.8)
[2021-09-30 06:22] LABS: Mean Platelet Volume 10.2 fL (7.4-10.4); Platelet Count 87 K/uL (130-400)
[2021-09-30 06:31] LABS: BUN Creatinine Ratio 21.5 (10-20); Calcium 8.1 mg/dl (8.5-10.1); Creatinine Clr Calc Pharmacy 34.5 ml/min; Est GFR (African American) 33.2 ml/min; Est GFR (Non-African American) 28.6 ml/min; Potassium 4.2 mmol/L (3.5-5.1)
--- NOTE | 2021-09-30 08:55 | Hospitalist Progress Note ---
Date of Service September 30, 2021 Assessment & Plan (1) Generalized weakness: Plan: likely 2/2 infection. Cont treatment below. (2) COVID-19: Plan: No hypoxia. CXR unremarkable. + SARS-CoV-2 PCR in ER Received COVID-19 vaccinations and 1 booster Airborne isolation Monitor for any hypoxia or respiratory symptoms and consider further treatment at that time. (3) Catheter-associated urinary tract infection: Plan: Need to change belcher catheter in setting of infection. Changed to oral cefdinir. Remains afebrile and doing well. (4) Draining cutaneous sinus tract: Plan: Reported discharge from abdomen for the past 1.5 years, with increased over past several months however has not noticed any increased drainage past several days. Evaluated by surgery here in [place] who did not feel comfortable with surgery here at [facility]. Patient was evaluated at [facility] general surgery on 09/21/2021 and surgery was recommended for suspected suture granuloma, however requires cardiac clearance as outpatient when he is feeling better. CT a/p reveals thick walled seroma-no evidence of abscess and no significant pain to palpation of abdomen. (5) Acute kidney injury superimposed on chronic kidney disease: Plan: Creat from 1.8 to 2.3 today. Held lisinopril. Started IVF and repeat in am. (6) Superior mesenteric artery stenosis: Plan: chronic, seen on imaging. Appears to be a new diagnosis as no evidence of this in his outpatient chart and there are no previous images that mention it. However, he doesn't have abdominal pain so likely there is collateral formation. Cont to monitor this as outpatient with PCP and consider vascular consultation as outpatient if symptoms develop. Smoking is highly discouraged in this [facility]. (7) Neurogenic bladder: Plan: Chronic Belcher cath-changed on 09/19 at home (8) Anemia: Plan: 2/2 chronic disease. Around baseline. No overt bleeding or need for transfusion. Cont to monitor. (9) Coronary artery disease: Plan: History of multivessel disease. 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 NovoLog sliding scale per protocol (11) Hypertension: Plan: chronic, stable. Continue lisinopril, atenolol, amlodipine (12) Cerebrovascular disease: Plan: History multiple strokes in the past and now with vascular dementia. Previously on Coumadin however was discontinued secondary to history of fall with multiple injuries Continue Plavix, atorvastatin (13) Dementia: Plan: Vascular dementia--high risk for confusion in the hospital. Reorient as needed. (14) Sleep apnea: Plan: Noncompliant with CPAP (15) Tobacco use: Plan: Denies nicotine patch. Reports history of hives from patch in past Smoking cessation encouraged (16) DVT prophylaxis: Plan: Lovenox Full Code Dispo-to home in 1-2 days. I spoke wtih his this evening and gave her an update that he is improved. She thanked me and all questions were answered to her satisfaction. Ina [facility] DO [facility] and Anticipated Discharge Date Admission Date: September 28, 2021 Subjective The patient is a 65-year-old man who arrived by ambulance for fever. Work-up revealed evidence of a catheter associated urinary tract infection and COVID- positive status. He received IV saline and cefepime and was admitted to medicine. Generalized weakness was present and patient was characterized as a poor historian. He has a known abdominal seroma that is complex and per Dr. Nieto, general surgeon, any investigation/exploration of this should be done at a tertiary care facility. He has known chronic indwelling Belcher catheter for history of neurogenic bladder. He is a diabetic currently on insulin. He does have CKD with his creatinine at baseline. OVERNIGHT: Low oral intake and low urine output Creatinine increased overnight He has been eating and drinking all day today and is feeling fine. Review of Systems Review of Systems: All systems were reviewed and negative except as indicated above. Physical Exam Physical Exam: CONSTITUTIONAL: WNWD, vitals as above, generally well- appearing, NAD EYES: normal conjunctivae, no scleral icterus ENT: external ear and nose normal, MMM NECK: trachea midline RESPIRATORY: clear to auscultation bilaterally, no crackles, rales or wheezes, normal respiratory effort CARDIOVASCULAR: regular rate and rhythm, S1 and 2 heard without murmurs, gallops or rubs, no JVD, no peripheral edema CHEST: inspection of chest was normal GASTROINTESTINAL: soft, nontender, ND, no guarding MUSCULOSKELETAL: generalized weakness, head is normocephalic and atraumatic, neck supple, normal palpation of chest wall without tenderness SKIN: warm and dry NEUROLOGIC: CN 2-12 grossly intact, no sensory deficit, normal cognition, normal speech, no tremor PSYCHIATRIC: alert cooperative and oriented to person, and place. Results & Data Results & Data ([facility]) Vital Signs (Past 12 Hours) Vital Signs Temp Pulse Pulse Resp BP BP Pulse Ox 09/30/21 08:01 36.8 C 60 18 99/63 L 95 09/30/21 07:20 59 L 09/30/21 02:46 36.8 C 53 L 18 93/53 L 93 09/29/21 23:03 36.8 C 55 L 18 96/57 L 92 09/29/21 22:17 55 L Laboratory Results Short CBC 09/30/21 Range/Units 05:53 WBC 5.96 (4.8-10.8) K/uL Hgb 9.9 L (14.0-18.0) g/dL Hct 29.3 L (42-52) % Plt Count 87 L (130-400) K/uL BMP 09/30/21 05:53 Sodium 134 L Potassium 4.2 Chloride 108 H Carbon Dioxide 21 BUN 49 H Creatinine 2.28 H D Glucose 86 Calcium 8.1 L Medications Administered Current Inpatient Medications Acetaminophen (Acetaminophen 325 Mg Tab) 650 mg PO Q4H PRN PRN Reason: Pain or Fever Stop: 10/28/21 19:25 Amlodipine Besylate (Amlodipine Besylate 5 Mg Tab) 5 mg PO DAILY ZHAO Stop: 10/28/21 19:44 Last Admin: 09/30/21 09:07 Dose: 5 mg Documented by: Atenolol (Atenolol 50 Mg Tablet) 100 mg PO DAILY ZHAO Stop: 10/28/21 19:59 Last Admin: 09/30/21 09:07 Dose: 100 mg Documented by: Atorvastatin Calcium (Atorvastatin 40 Mg Tab) 80 mg PO HS ZHAO Stop: 10/28/21 20:59 Last Admin: 09/30/21 21:20 Dose: 80 mg Documented by: Cefdinir (Cefdinir 300 Mg Cap) 300 mg PO BID ZHAO Stop: 10/10/21 20:59 Last Admin: 05/20/22 21:20 Dose: 300 mg Documented by: Clopidogrel Bisulfate (Clopidogrel Bisulfate 75 Mg Tab) 75 mg PO DAILY ZHAO Stop: 10/28/21 19:59 Last Admin: 09/30/21 09:07 Dose: 75 mg Documented by: Dextrose (Dextrose 50% 50 Ml Syringe) 25 - 50 ml IV UD PRN; Protocol PRN Reason: Hypoglycemia Protocol Stop: 10/28/21 19:25 Enoxaparin Sodium (Enoxaparin Inj 40 Mg/0.4 Ml Syr) 40 mg SQ Q24H [facility]HAO Stop: 10/28/21 19:59 Last Admin: 09/30/21 21:21 Dose: 40 mg Documented by: Glucagon (Glucagon For Inj 1 Mg Vial) 1 mg SQ UD PRN; Protocol PRN Reason: Hypoglycemia Protocol Stop: 10/28/21 19:25 Glucose (Glucose 10 Tabs/Tube) 4 - 8 tabs PO UD PRN; Protocol PRN Reason: Hypoglycemia Protocol Stop: 10/28/21 19:25 Glucose (Glucose 40% Gel 15 Gm Tube) 15 - 30 gm PO UD PRN; Protocol PRN Reason: Hypoglycemia Protocol Stop: 10/28/21 19:25 Insulin Aspart (Insulin Aspart Per Unit) 0 units SC ACHS [facility] Stop: 10/28/21 20:59 Last Admin: 09/30/21 21:21 Dose: Not Given Documented by: Insulin Glargine (Insulin Glargine Solostar 100 Units/Ml 3 Ml Pen) 18 units SC BID [facility] Stop: 10/28/21 20:59 Last Admin: 09/30/21 21:21 Dose: 18 units Documented by: Isosorbide Mononitrate (Isosorbide [place] Extended Rel 60 Mg Tabcr) 60 mg PO DAILY ZHAO Stop: 10/28/21 19:59 Last Admin: 09/30/21 09:06 Dose: 60 mg Documented by: Lisinopril (Lisinopril 40 Mg Tab) 40 mg PO DAILY ZHAO Stop: 10/28/21 19:59 Last Admin: 09/29/21 09:01 Dose: 40 mg Documented by: Miscellaneous (Carbohydrates For Hypoglycemia ) 15 - 30 gm PO UD PRN PRN Reason: Hypoglycemia Protocol Stop: 10/28/21 19:25 Ondansetron HCl (Ondansetron Inj 2 Mg/Ml 2 Ml Vial) 4 mg IV Q6H PRN PRN Reason: Nausea Stop: 10/28/21 19:25 Polyethylene Glycol (Polyethylene (Miralax) 17 Gm Pack) 17 gm PO DAILY PRN PRN Reason: Constipation Stop: 10/28/21 19:25 Potassium Chloride (Potassium Chloride Crtab 20 Meq Tabcr) 20 meq PO DAILY ZHAO Stop: 10/29/21 08:59 Last Admin: 09/30/21 09:07 Dose: 20 meq Documented by: Prazosin HCl (Prazosin Hcl 1 Mg Cap) 5 mg PO HS ZHAO Stop: 10/28/21 20:59 Last Admin: 09/30/21 21:20 Dose: 5 mg Documented by: Trazodone HCl (Trazodone Hcl 50 Mg Tab) 150 mg PO HS [facility]O Stop: 10/28/21 20:59 Last Admin: 09/30/21 21:20 Dose: 150 mg Documented by: Venlafaxine HCl (Venlafaxine Hcl Xr 75 Mg Capxr) 225 mg PO QAM [facility]O Stop: 10/28/21 19:59 Last Admin: 09/30/21 09:07 Dose: 225 mg Documented by: Vitamin D (Cholecalciferol 1,000 Units 25 Mcg Tab) 2,000 units PO DAILY ZHAO Stop: 10/29/21 08:59 Last Admin: 09/30/21 09:07 Dose: 2,000 units Documented by: (1) Sleep apnea Sleep apnea type: obstructive Qualified Code(s): G47.33 - Obstructive sleep apnea (adult) (pediatric) (2) Coronary artery disease Associated angina: without angina Coronary Disease-Associated Artery/Lesion type: [place] artery [place] vs. transplanted heart: [place] heart Qualified Code(s): I25.10 - Atherosclerotic heart disease of [place] coronary artery without angina pectoris (3) Hypertension Hypertension type: essential hypertension Qualified Code(s): I10 - Essential (primary) hypertension
[2021-09-30] MEDS: INSULIN ASPART PER UNIT SC SCH ×4 (08:58→21:21)
[2021-09-30] MEDS: INSULIN GLARGINE SOLOSTAR 100 UNITS/ML 3 ML PEN SC SCH ×2 (08:59→21:21)
[2021-09-30] MEDS: ISOSORBIDE MONO EXTENDED REL 60 MG TABCR PO SCH (09:06)
[2021-09-30] MEDS: CHOLECALCIFEROL 1,000 UNITS 25 MCG TAB PO SCH (09:07)
[2021-09-30] MEDS: VENLAFAXINE HCL XR 75 MG CAPXR PO SCH (09:07)
[2021-09-30] MEDS: POTASSIUM CHLORIDE CRTAB 20 MEQ TABCR PO SCH (09:07)
[2021-09-30] MEDS: CLOPIDOGREL BISULFATE 75 MG TAB PO SCH (09:07)
[2021-09-30] MEDS: amLODIPine BESYLATE 5 MG TAB PO SCH (09:07)
[2021-09-30] MEDS: ATENOLOL 50 MG TABLET PO SCH (09:07)
[2021-09-30] MEDS: CEFEPIME 2,000 MG in SYRINGE 0 ML IV SCH (10:36)
--- NOTE | 2021-09-30 17:51 | Electrocardiogram Report ---
Test Reason : Blood Pressure : / mmHG Vent. Rate : 063 BPM Atrial Rate : 063 BPM P-R Int : 170 ms QRS Dur : 148 ms QT Int : 486 ms P-R-T Axes : 028 032 020 degrees QTc Int : 497 ms Poor data quality, interpretation may be adversely affected Normal sinus rhythm Right bundle branch block Inferior infarct (cited on or before 15-MAY-2018) Abnormal ECG When compared with ECG of 28-SEP-2021 09:53, [place] interval has decreased QT has lengthened Confirmed by Abiel Clarke ([id number]) on 09/30/2021 5:50:50 PM Referred By: REFERRED SELF Confirmed By:Vaibhav Clarke
[2021-09-30] MEDS: ATORVASTATIN 40 MG TAB PO SCH (21:20)
[2021-09-30] MEDS: PRAZOSIN HCL 1 MG CAP PO SCH (21:20)
[2021-09-30] MEDS: traZODone HCL 50 MG TAB PO SCH (21:20)
[2021-09-30] MEDS: CEFDINIR 300 MG CAP PO SCH (21:20)
[2021-09-30] MEDS: ENOXAPARIN INJ 40 MG/0.4 ML SYR SQ SCH (21:21)
[2021-10-01 06:21] LABS: Hematocrit (blood only) 29.5 % (42-52); Hemoglobin 9.9 g/dL (14.0-18.0); Mean Corpuscular Hemoglobin 30.7 pg (25-34); Mean Corpuscular Hgb Conc 33.6 g/dL (32-36); Mean Corpuscular Volume 91.3 fL (80-100); RDW Coefficient of Variation 14.3 % (11.5-14.5); RDW Standard Deviation 48.3 fL (36.4-46.3); Red Blood Count 3.23 M/uL (4.7-6.1); White Blood Count 5.71 K/uL (4.8-10.8)
[2021-10-01 06:25] LABS: Mean Platelet Volume 11.1 fL (7.4-10.4); Platelet Count 88 K/uL (130-400)
[2021-10-01 07:08] LABS: BUN Creatinine Ratio 22.5 (10-20); Calcium 8.1 mg/dl (8.5-10.1); Creatinine Clr Calc Pharmacy 35.4 ml/min; Est GFR (African American) 34.3 ml/min; Est GFR (Non-African American) 29.6 ml/min; Potassium 4.2 mmol/L (3.5-5.1)
--- NOTE | 2021-10-01 07:25 | XRay Report ---
XR chest 1V portable CLINICAL HISTORY: covid, rule out pna COMPARISON STUDY: Chest radiograph September 28, 2021. FINDINGS: Lung volumes are normal. Lungs are clear. There is no pneumothorax or pleural effusion. Car diac size is normal. Mediastinal contours are normal. There is no evidence for pulmonary edema. Subtl e interstitial thickening is unchanged. This is chronic. IMPRESSION: No acute cardiopulmonary findings. No consolidation. ACT 112: Negative or not required by law. Electronically signed by: Jose Pereira M.D. 10/01/2021 7:24 AM
[2021-10-01] MEDS: INSULIN ASPART PER UNIT SC SCH ×4 (09:38→20:35)
[2021-10-01] MEDS: INSULIN GLARGINE SOLOSTAR 100 UNITS/ML 3 ML PEN SC SCH ×2 (09:39→20:52)
[2021-10-01] MEDS: ATENOLOL 50 MG TABLET PO SCH (09:48)
[2021-10-01] MEDS: amLODIPine BESYLATE 5 MG TAB PO SCH (09:48)
[2021-10-01] MEDS: CEFDINIR 300 MG CAP PO SCH ×2 (09:48→20:38)
[2021-10-01] MEDS: ISOSORBIDE MONO EXTENDED REL 60 MG TABCR PO SCH (09:49)
[2021-10-01] MEDS: CLOPIDOGREL BISULFATE 75 MG TAB PO SCH (09:49)
[2021-10-01] MEDS: VENLAFAXINE HCL XR 75 MG CAPXR PO SCH (09:50)
[2021-10-01] MEDS: POTASSIUM CHLORIDE CRTAB 20 MEQ TABCR PO SCH (09:50)
[2021-10-01] MEDS: CHOLECALCIFEROL 1,000 UNITS 25 MCG TAB PO SCH (12:05)
--- NOTE | 2021-10-01 14:40 | Hospitalist Progress Note ---
Date of Service October 01, 2021 Assessment & Plan (1) Generalized weakness: Plan: likely 2/2 infection. Cont treatment below. (2) COVID-19: Plan: No hypoxia. CXR unremarkable. + SARS-CoV-2 PCR in ER Received COVID-19 vaccinations and 1 booster Airborne isolation Monitor for any hypoxia or respiratory symptoms and consider further treatment at that time. Repeat CXR with no acute changes. (3) Catheter-associated urinary tract infection: Plan: Urine clx 09/28 with Klebsiella aerogenes pansensitive except for Macrobid Catheter changed 09/19 and gets changed every month. S/p IV antibiotic and now on cefdinir D3/7 per urine clx results. Needs to be changed this admission. Remains afebrile and doing well. (4) Draining cutaneous sinus tract: Plan: Reported discharge from abdomen for the past 1.5 years, with increased over past several months however has not noticed any increased drainage past several days. Evaluated by surgery here in [place] who did not feel comfortable with surgery here at [facility]. Patient was evaluated at [facility] general surgery on 09/21/2021 and surgery was recommended for suspected suture granuloma, however requires cardiac clearance as outpatient when he is feeling better. CT a/p reveals thick walled seroma-no evidence of abscess and no significant pain to palpation of abdomen. (5) Acute kidney injury superimposed on chronic kidney disease: Plan: Cr 1.83->-2.3->2.2. lisinopril on hold and s/p IVF. Recheck in am (6) Superior mesenteric artery stenosis: Plan: chronic, seen on imaging. Appears to be a new diagnosis as no evidence of this in his outpatient chart and there are no previous images that mention it. However, he doesn't have abdominal pain so likely there is collateral formation. Cont to monitor this as outpatient with PCP and consider vascular consultation as outpatient if symptoms develop. Smoking is highly discouraged in this setting. (7) Neurogenic bladder: Plan: Chronic Belcher cath-changed on 09/19 at home (8) Anemia: Plan: 2/2 chronic disease. Around baseline. No overt bleeding or need for transfusion. Cont to monitor. (9) Coronary artery disease: Plan: History of multivessel disease. 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 NovoLog sliding scale per protocol (11) Hypertension: Plan: chronic, stable. Continue lisinopril, atenolol, amlodipine (12) Cerebrovascular disease: Plan: History multiple strokes in the past and now with vascular dementia. Previously on Coumadin however was discontinued secondary to history of fall with multiple injuries Continue Plavix, atorvastatin (13) Dementia: Plan: Vascular dementia--high risk for confusion in the hospital. Reorient as needed. (14) Sleep apnea: Plan: Noncompliant with CPAP (15) Tobacco use: Plan: Denies nicotine patch. Reports history of hives from patch in past Smoking cessation encouraged (16) DVT prophylaxis: Plan: Lovenox Full Code Update: Updated daughter Jerica and Jenny over the phone Dispo: Per , he can not be isolated at home, hence might need to be here for isolation. Will reach out to CM regarding the options. Admission and Anticipated Discharge Date Admission Date: September 28, 2021 Subjective Feels fine. Denies any new issues. Denies any fever, chills, chest pain, shortness of breath, nausea, vomiting. Normal oral intake. Physical Exam Physical Exam: General: Lying comfortably in bed, not in distress, on room air HEENT: EOMI, SEEMA, MMM Chest: Clear breath sounds bilaterally, no wheezes or crackles CVS: Regular rate and rhythm, normal heart sounds, no murmur Abdomen: Soft, non tender, not distended, normal bowel sounds Neuro: Awake, alert, oriented, conversing well, non focal Extremities: No cyanosis, clubbing or edema On belcher with tavia urine Results & Data Results & Data ([facility]) Vital Signs (Past 12 Hours) Vital Signs Temp Pulse Resp BP BP Pulse Ox 10/01/21 09:47 63 117/67 10/01/21 08:02 36.6 C 58 L 18 133/72 95 Laboratory Results Short CBC 10/01/21 Range/Units 05:46 WBC 5.71 (4.8-10.8) K/uL Hgb 9.9 L (14.0-18.0) g/dL Hct 29.5 L (42-52) % Plt Count 88 L (130-400) K/uL BMP 10/01/21 05:46 Sodium 132 L Potassium 4.2 Chloride 106 Carbon Dioxide 22 BUN 50 H Creatinine 2.22 H Glucose 57 L Calcium 8.1 L Diagnostic Findings Chest X-Ray 10/01/21 07:00 XR chest 1V portable CLINICAL HISTORY: covid, rule out pna COMPARISON STUDY: Chest radiograph September 28, 2021. FINDINGS: Lung volumes are normal. Lungs are clear. There is no pneumothorax or pleural effusion. Cardiac size is normal. Mediastinal contours are normal. There is no evidence for pulmonary edema. Subtle interstitial thickening is unchanged. This is chronic. IMPRESSION: No acute cardiopulmonary findings. No consolidation. ACT 112: Negative or not required by law. Electronically signed by: Jose Pereira M.D. 10/01/2021 7:24 AM Medications Administered Current Inpatient Medications Acetaminophen (Acetaminophen 325 Mg Tab) 650 mg PO Q4H PRN PRN Reason: Pain or Fever Stop: 10/28/21 19:25 Amlodipine Besylate (Amlodipine Besylate 5 Mg Tab) 5 mg PO DAILY ZHAO Stop: 10/28/21 19:44 Last Admin: 10/01/21 09:48 Dose: 5 mg Documented by: Atenolol (Atenolol 50 Mg Tablet) 100 mg PO DAILY ZHAO Stop: 10/28/21 19:59 Last Admin: 10/01/21 09:48 Dose: 100 mg Documented by: Atorvastatin Calcium (Atorvastatin 40 Mg Tab) 80 mg PO HS ZHAO Stop: 10/28/21 20:59 Last Admin: 09/30/21 21:20 Dose: 80 mg Documented by: Cefdinir (Cefdinir 300 Mg Cap) 300 mg PO BID ZHAO Stop: 10/10/21 20:59 Last Admin: 10/01/21 09:48 Dose: 300 mg Documented by: Clopidogrel Bisulfate (Clopidogrel Bisulfate 75 Mg Tab) 75 mg PO DAILY ZHAO Stop: 10/28/21 19:59 Last Admin: 10/01/21 09:49 Dose: 75 mg Documented by: Dextrose (Dextrose 50% 50 Ml Syringe) 25 - 50 ml IV UD PRN; Protocol PRN Reason: Hypoglycemia Protocol Stop: 10/28/21 19:25 Enoxaparin Sodium (Enoxaparin Inj 40 Mg/0.4 Ml Syr) 40 mg SQ Q24H ZHAO Stop: 10/28/21 19:59 Last Admin: 09/30/21 21:21 Dose: 40 mg Documented by: Glucagon (Glucagon For Inj 1 Mg Vial) 1 mg SQ UD PRN; Protocol PRN Reason: Hypoglycemia Protocol Stop: 10/28/21 19:25 Glucose (Glucose 10 Tabs/Tube) 4 - 8 tabs PO UD PRN; Protocol PRN Reason: Hypoglycemia Protocol Stop: 10/28/21 19:25 Glucose (Glucose 40% Gel 15 Gm Tube) 15 - 30 gm PO UD PRN; Protocol PRN Reason: Hypoglycemia Protocol Stop: 10/28/21 19:25 Insulin Aspart (Insulin Aspart Per Unit) 0 units SC ACHS ZHAO Stop: 10/28/21 20:59 Last Admin: 10/01/21 13:34 Dose: 2 units Documented by: Insulin Glargine (Insulin Glargine Solostar 100 Units/Ml 3 Ml Pen) 16 units SC BID ZHAO Stop: 10/31/21 08:59 Last Admin: 10/01/21 09:39 Dose: 16 units Documented by: Isosorbide Mononitrate (Isosorbide [place] Extended Rel 60 Mg Tabcr) 60 mg PO DAILY ZHAO Stop: 10/28/21 19:59 Last Admin: 10/01/21 09:49 Dose: 60 mg Documented by: Lisinopril (Lisinopril 40 Mg Tab) 40 mg PO DAILY ZHAO Stop: 10/28/21 19:59 Last Admin: 09/29/21 09:01 Dose: 40 mg Documented by: Miscellaneous (Carbohydrates For Hypoglycemia ) 15 - 30 gm PO UD PRN PRN Reason: Hypoglycemia Protocol Stop: 10/28/21 19:25 Ondansetron HCl (Ondansetron Inj 2 Mg/Ml 2 Ml Vial) 4 mg IV Q6H PRN PRN Reason: Nausea Stop: 10/28/21 19:25 Polyethylene Glycol (Polyethylene (Miralax) 17 Gm Pack) 17 gm PO DAILY PRN PRN Reason: Constipation Stop: 10/28/21 19:25 Potassium Chloride (Potassium Chloride Crtab 20 Meq Tabcr) 20 meq PO DAILY ZHAO Stop: 10/29/21 08:59 Last Admin: 10/01/21 09:50 Dose: 20 meq Documented by: Prazosin HCl (Prazosin Hcl 1 Mg Cap) 5 mg PO HS ZHAO Stop: 10/28/21 20:59 Last Admin: 09/30/21 21:20 Dose: 5 mg Documented by: Trazodone HCl (Trazodone Hcl 50 Mg Tab) 150 mg PO HS ZHAO Stop: 10/28/21 20:59 Last Admin: 09/30/21 21:20 Dose: 150 mg Documented by: Venlafaxine HCl (Venlafaxine Hcl Xr 75 Mg Capxr) 225 mg PO QAM ZHAO Stop: 10/28/21 19:59 Last Admin: 10/01/21 09:50 Dose: 225 mg Documented by: Vitamin D (Cholecalciferol 1,000 Units 25 Mcg Tab) 2,000 units PO DAILY ZHAO Stop: 10/29/21 08:59 Last Admin: 10/01/21 12:05 Dose: 2,000 units Documented by: (1) Sleep apnea Sleep apnea type: obstructive Qualified Code(s): G47.33 - Obstructive sleep apnea (adult) (pediatric) (2) Coronary artery disease Associated angina: without angina Coronary Disease-Associated Artery/Lesion type: [place] artery [place] vs. transplanted heart: [place] heart Qualified Code(s): I25.10 - Atherosclerotic heart disease of [place] coronary artery without angina pectoris (3) Hypertension Hypertension type: essential hypertension Qualified Code(s): I10 - Essential (primary) hypertension
[2021-10-01 14:51] LABS: Babesia microti DNA Not Detected (Not Detected)
[2021-10-01] MEDS: traZODone HCL 50 MG TAB PO SCH (20:38)
[2021-10-01] MEDS: ENOXAPARIN INJ 40 MG/0.4 ML SYR SQ SCH (20:38)
[2021-10-01] MEDS: ATORVASTATIN 40 MG TAB PO SCH (20:39)
[2021-10-01] MEDS: PRAZOSIN HCL 1 MG CAP PO SCH (20:39)
[2021-10-02] MEDS: INSULIN ASPART PER UNIT SC SCH ×4 (09:04→19:49)
[2021-10-02] MEDS: CEFDINIR 300 MG CAP PO SCH ×2 (09:12→19:43)
[2021-10-02] MEDS: amLODIPine BESYLATE 5 MG TAB PO SCH (09:12)
[2021-10-02] MEDS: ATENOLOL 50 MG TABLET PO SCH (09:13)
[2021-10-02] MEDS: CHOLECALCIFEROL 1,000 UNITS 25 MCG TAB PO SCH (09:14)
[2021-10-02] MEDS: CLOPIDOGREL BISULFATE 75 MG TAB PO SCH (09:14)
[2021-10-02] MEDS: VENLAFAXINE HCL XR 75 MG CAPXR PO SCH (09:15)
[2021-10-02] MEDS: POTASSIUM CHLORIDE CRTAB 20 MEQ TABCR PO SCH (09:15)
[2021-10-02] MEDS: ISOSORBIDE MONO EXTENDED REL 60 MG TABCR PO SCH (09:15)
[2021-10-02 10:03] LABS: BUN Creatinine Ratio 26.2 (10-20); Calcium 8.5 mg/dl (8.5-10.1); Creatinine Clr Calc Pharmacy 38.9 ml/min; Est GFR (African American) 38.4 ml/min; Est GFR (Non-African American) 33.1 ml/min; Potassium 4.4 mmol/L (3.5-5.1)
[2021-10-02] MEDS: INSULIN GLARGINE SOLOSTAR 100 UNITS/ML 3 ML PEN SC SCH ×2 (11:26→20:04)
[2021-10-02] MEDS: ENOXAPARIN INJ 40 MG/0.4 ML SYR SQ SCH (19:42)
[2021-10-02] MEDS: ATORVASTATIN 40 MG TAB PO SCH (19:42)
[2021-10-02] MEDS: PRAZOSIN HCL 1 MG CAP PO SCH (19:43)
--- NOTE | 2021-10-02 19:43 | Hospitalist Progress Note ---
Date of Service October 02, 2021 Assessment & Plan (1) Generalized weakness: Plan: likely 2/2 infection. Cont treatment below. (2) COVID-19: Plan: No hypoxia. CXR unremarkable. + SARS-CoV-2 PCR in ER Received COVID-19 vaccinations and 1 booster Airborne isolation Monitor for any hypoxia or respiratory symptoms and consider further treatment at that time. Repeat CXR with no acute changes. (3) Catheter-associated urinary tract infection: Plan: Urine clx 09/28 with Klebsiella aerogenes pansensitive except for Macrobid Catheter changed 09/19 and gets changed every month. S/p IV antibiotic and now on cefdinir D3/7 per urine clx results. Needs to be changed this admission. Remains afebrile and doing well. (4) Draining cutaneous sinus tract: Plan: Reported discharge from abdomen for the past 1.5 years, with increased over past several months however has not noticed any increased drainage past several days. Evaluated by surgery here in [place] who did not feel comfortable with surgery here at [facility]. Patient was evaluated at [facility] general surgery on 09/21/2021 and surgery was recommended for suspected suture granuloma, however requires cardiac clearance as outpatient when he is feeling better. CT a/p reveals thick walled seroma-no evidence of abscess and no significant pain to palpation of abdomen. (5) Acute kidney injury superimposed on chronic kidney disease: Plan: Cr 1.83->-2.3->2.2->2. lisinopril on hold and s/p IVF. Recheck intermittently (6) Superior mesenteric artery stenosis: Plan: chronic, seen on imaging. Appears to be a new diagnosis as no evidence of this in his outpatient chart and there are no previous images that mention it. However, he doesn't have abdominal pain so likely there is collateral formation. Cont to monitor this as outpatient with PCP and consider vascular consultation as outpatient if symptoms develop. Smoking is highly discouraged in this setting. (7) Neurogenic bladder: Plan: Chronic Belcher cath-changed on 09/19 at home (8) Anemia: Plan: 2/2 chronic disease. Around baseline. No overt bleeding or need for transfusion. Continue to monitor. (9) Coronary artery disease: Plan: History of multivessel disease. 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 NovoLog sliding scale per protocol (11) Hypertension: Plan: chronic, stable. Continue lisinopril, atenolol, amlodipine (12) Cerebrovascular disease: Plan: History multiple strokes in the past and now with vascular dementia. Previously on Coumadin however was discontinued secondary to history of fall with multiple injuries Continue Plavix, atorvastatin (13) Dementia: Plan: Vascular dementia--high risk for confusion in the hospital. Reorient as needed. (14) Sleep apnea: Plan: Noncompliant with CPAP (15) Tobacco use: Plan: Denies nicotine patch. Reports history of hives from patch in past Smoking cessation encouraged (16) DVT prophylaxis: Plan: Lovenox Full Code Update: Updated Jenny over the phone Dispo: Patient needs 24/7 care at home and partly provided by home services but likely can not resume care with his covid infection. will reach out to the agency tomorrow. Discussed with CM regarding options. Admission and Anticipated Discharge Date Admission Date: September 28, 2021 Subjective No new issues. He feels fine and ready to go home. Discussed about his covid status and unable to care or isolate at home as he needs 24/7 care. Physical Exam Physical Exam: General: Lying comfortably in bed, not in distress, on room air HEENT: EOMI, SEEMA, MMM Chest: Clear breath sounds bilaterally, no wheezes or crackles CVS: Regular rate and rhythm, normal heart sounds, no murmur Abdomen: Soft, non tender, not distended, normal bowel sounds Neuro: Awake, alert, oriented, conversing well, non focal Extremities: No cyanosis, clubbing or edema On belcher with tavia urine Results & Data Results & Data ([facility]) Vital Signs (Past 12 Hours) Vital Signs Temp Pulse Resp BP Pulse Ox 10/02/21 15:37 36.7 C 57 L 18 123/71 96 10/02/21 09:10 62 10/02/21 07:48 36.6 C 56 L 18 147/73 H 96 Laboratory Results Short CBC 09/28/21 09/29/21 09/30/21 Range/Units 10:15 06:52 05:53 Creatinine 1.78 H 1.79 H 2.28 H D (0.6-1.4) mg/dl 10/01/21 10/02/21 Range/Units 05:46 08:21 Creatinine 2.22 H 2.02 H (0.6-1.4) mg/dl BMP 10/02/21 08:21 Sodium 133 L Potassium 4.4 Chloride 107 Carbon Dioxide 21 BUN 53 H Creatinine 2.02 H Glucose 75 Calcium 8.5 Medications Administered Current Inpatient Medications Acetaminophen (Acetaminophen 325 Mg Tab) 650 mg PO Q4H PRN PRN Reason: Pain or Fever Stop: 10/28/21 19:25 Amlodipine Besylate (Amlodipine Besylate 5 Mg Tab) 5 mg PO DAILY ZHAO Stop: 10/28/21 19:44 Last Admin: 10/02/21 09:12 Dose: 5 mg Documented by: Atenolol (Atenolol 50 Mg Tablet) 100 mg PO DAILY ZHAO Stop: 10/28/21 19:59 Last Admin: 10/02/21 09:13 Dose: 100 mg Documented by: Atorvastatin Calcium (Atorvastatin 40 Mg Tab) 80 mg PO HS ZHAO Stop: 10/28/21 20:59 Last Admin: 10/01/21 20:39 Dose: 80 mg Documented by: Cefdinir (Cefdinir 300 Mg Cap) 300 mg PO BID ZHAO Stop: 10/10/21 20:59 Last Admin: 10/02/21 09:12 Dose: 300 mg Documented by: Clopidogrel Bisulfate (Clopidogrel Bisulfate 75 Mg Tab) 75 mg PO DAILY ZHAO Stop: 10/28/21 19:59 Last Admin: 10/02/21 09:14 Dose: 75 mg Documented by: Dextrose (Dextrose 50% 50 Ml Syringe) 25 - 50 ml IV UD PRN; Protocol PRN Reason: Hypoglycemia Protocol Stop: 10/28/21 19:25 Enoxaparin Sodium (Enoxaparin Inj 40 Mg/0.4 Ml Syr) 40 mg SQ Q24H ZHAO Stop: 10/28/21 19:59 Last Admin: 10/01/21 20:38 Dose: 40 mg Documented by: Glucagon (Glucagon For Inj 1 Mg Vial) 1 mg SQ UD PRN; Protocol PRN Reason: Hypoglycemia Protocol Stop: 10/28/21 19:25 Glucose (Glucose 10 Tabs/Tube) 4 - 8 tabs PO UD PRN; Protocol PRN Reason: Hypoglycemia Protocol Stop: 10/28/21 19:25 Glucose (Glucose 40% Gel 15 Gm Tube) 15 - 30 gm PO UD PRN; Protocol PRN Reason: Hypoglycemia Protocol Stop: 10/28/21 19:25 Insulin Aspart (Insulin Aspart Per Unit) 0 units SC ACHS ZHAO Stop: 10/28/21 20:59 Last Admin: 10/02/21 17:15 Dose: 4 units Documented by: Insulin Glargine (Insulin Glargine Solostar 100 Units/Ml 3 Ml Pen) 16 units SC BID ZHAO Stop: 10/31/21 08:59 Last Admin: 10/02/21 11:26 Dose: 16 units Documented by: Isosorbide Mononitrate (Isosorbide [place] Extended Rel 60 Mg Tabcr) 60 mg PO DAILY ZHAO Stop: 10/28/21 19:59 Last Admin: 10/02/21 09:15 Dose: 60 mg Documented by: Lisinopril (Lisinopril 40 Mg Tab) 40 mg PO DAILY ZHAO Stop: 10/28/21 19:59 Last Admin: 09/29/21 09:01 Dose: 40 mg Documented by: Miscellaneous (Carbohydrates For Hypoglycemia ) 15 - 30 gm PO UD PRN PRN Reason: Hypoglycemia Protocol Stop: 10/28/21 19:25 Ondansetron HCl (Ondansetron Inj 2 Mg/Ml 2 Ml Vial) 4 mg IV Q6H PRN PRN Reason: Nausea Stop: 10/28/21 19:25 Polyethylene Glycol (Polyethylene (Miralax) 17 Gm Pack) 17 gm PO DAILY PRN PRN Reason: Constipation Stop: 10/28/21 19:25 Potassium Chloride (Potassium Chloride Crtab 20 Meq Tabcr) 20 meq PO DAILY ZHAO Stop: 10/29/21 08:59 Last Admin: 10/02/21 09:15 Dose: 20 meq Documented by: Prazosin HCl (Prazosin Hcl 1 Mg Cap) 5 mg PO HS ZHAO Stop: 10/28/21 20:59 Last Admin: 10/01/21 20:39 Dose: 5 mg Documented by: Trazodone HCl (Trazodone Hcl 50 Mg Tab) 150 mg PO HS [facility] Stop: 10/28/21 20:59 Last Admin: 10/01/21 20:38 Dose: 150 mg Documented by: Venlafaxine HCl (Venlafaxine Hcl Xr 75 Mg Capxr) 225 mg PO QAM [facility] Stop: 10/28/21 19:59 Last Admin: 10/02/21 09:15 Dose: 225 mg Documented by: Vitamin D (Cholecalciferol 1,000 Units 25 Mcg Tab) 2,000 units PO DAILY ZHAO Stop: 10/29/21 08:59 Last Admin: 10/02/21 09:14 Dose: 2,000 units Documented by: (1) Coronary artery disease Coronary Disease-Associated Artery/Lesion type: [place] artery [place] vs. transplanted heart: [place] heart Associated angina: without angina Qualified Code(s): I25.10 - Atherosclerotic heart disease of [place] coronary artery without angina pectoris (2) Hypertension Hypertension type: essential hypertension Qualified Code(s): I10 - Essential (primary) hypertension (3) Sleep apnea Sleep apnea type: obstructive Qualified Code(s): G47.33 - Obstructive sleep apnea (adult) (pediatric)
[2021-10-02] MEDS: traZODone HCL 50 MG TAB PO SCH (19:44)
[2021-10-03] MEDS: CHOLECALCIFEROL 1,000 UNITS 25 MCG TAB PO SCH (08:26)
[2021-10-03] MEDS: CEFDINIR 300 MG CAP PO SCH ×2 (08:26→20:56)
[2021-10-03] MEDS: ATENOLOL 50 MG TABLET PO SCH (08:26)
[2021-10-03] MEDS: amLODIPine BESYLATE 5 MG TAB PO SCH (08:26)
[2021-10-03] MEDS: CLOPIDOGREL BISULFATE 75 MG TAB PO SCH (08:27)
[2021-10-03] MEDS: ISOSORBIDE MONO EXTENDED REL 60 MG TABCR PO SCH (08:27)
[2021-10-03] MEDS: POTASSIUM CHLORIDE CRTAB 20 MEQ TABCR PO SCH (08:27)
[2021-10-03] MEDS: VENLAFAXINE HCL XR 75 MG CAPXR PO SCH (08:27)
[2021-10-03] MEDS: INSULIN GLARGINE SOLOSTAR 100 UNITS/ML 3 ML PEN SC SCH ×2 (11:07→21:19)
[2021-10-03] MEDS: INSULIN ASPART PER UNIT SC SCH ×4 (11:07→21:19)
--- NOTE | 2021-10-03 18:00 | Hospitalist Progress Note ---
Date of Service October 03, 2021 Assessment & Plan (1) Generalized weakness: Plan: likely 2/2 infection. Cont treatment below. (2) COVID-19: Plan: No hypoxia. CXR unremarkable. + SARS-CoV-2 PCR in ER Received COVID-19 vaccinations and 1 booster Airborne isolation Monitor for any hypoxia or respiratory symptoms and consider further treatment at that time. Repeat CXR with no acute changes. (3) Catheter-associated urinary tract infection: Plan: Urine clx 09/28 with Klebsiella aerogenes pansensitive except for Macrobid Catheter changed 09/19 and gets changed every month. S/p IV antibiotic and now on cefdinir D3/7 per urine clx results. Needs to be changed this admission. Remains afebrile and doing well. (4) Draining cutaneous sinus tract: Plan: Reported discharge from abdomen for the past 1.5 years, with increased over past several months however has not noticed any increased drainage past several days. Evaluated by surgery here in [place] who did not feel comfortable with surgery here at [facility]. Patient was evaluated at [facility] general surgery on 09/21/2021 and surgery was recommended for suspected suture granuloma, however requires cardiac clearance as outpatient when he is feeling better. CT a/p reveals thick walled seroma-no evidence of abscess and no significant pain to palpation of abdomen. (5) Acute kidney injury superimposed on chronic kidney disease: Plan: Cr 1.83->-2.3->2.2->2. lisinopril on hold and s/p IVF. Recheck intermittently (6) Superior mesenteric artery stenosis: Plan: chronic, seen on imaging. Appears to be a new diagnosis as no evidence of this in his outpatient chart and there are no previous images that mention it. However, he doesn't have abdominal pain so likely there is collateral formation. Cont to monitor this as outpatient with PCP and consider vascular consultation as outpatient if symptoms develop. Smoking is highly discouraged in this setting. (7) Neurogenic bladder: Plan: Chronic Belcher cath-changed on 09/19 at home (8) Anemia: Plan: 2/2 chronic disease. Around baseline. No overt bleeding or need for transfusion. Continue to monitor. (9) Coronary artery disease: Plan: History of multivessel disease. 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 NovoLog sliding scale per protocol (11) Hypertension: Plan: chronic, stable. Continue lisinopril, atenolol, amlodipine (12) Cerebrovascular disease: Plan: History multiple strokes in the past and now with vascular dementia. Previously on Coumadin however was discontinued secondary to history of fall with multiple injuries Continue Plavix, atorvastatin (13) Dementia: Plan: Vascular dementia--high risk for confusion in the hospital. Reorient as needed. (14) Sleep apnea: Plan: Noncompliant with CPAP (15) Tobacco use: Plan: Denies nicotine patch. Reports history of hives from patch in past Smoking cessation encouraged (16) DVT prophylaxis: Plan: Lovenox Full Code Dispo: Patient needs 24/ care at home and partly provided by home services- trying to determine if they can resume the services given his covid infection. Will have answer tomorrow per CM, otherwise will have to transfer to [place] [facility]. Admission and Anticipated Discharge Date Admission Date: September 28, 2021 Subjective Feels fine. Denies any issues. No fever, chills, chest pain, shortness of breath. Physical Exam Physical Exam: General: Lying comfortably in bed, not in distress, on room air HEENT: EOMI, SEEMA, MMM Chest: Clear breath sounds bilaterally, no wheezes or crackles CVS: Regular rate and rhythm, normal heart sounds, no murmur Abdomen: Soft, non tender, not distended, normal bowel sounds Neuro: Awake, alert, oriented, conversing well, non focal Extremities: No cyanosis, clubbing or edema On belcher with tavia urine Results & Data Results & Data ([facility]) Vital Signs (Past 12 Hours) Vital Signs Temp Pulse Resp BP Pulse Ox 10/03/21 17:15 36.5 C 60 16 158/71 H 96 10/03/21 12:25 130/69 10/03/21 08:23 36.7 C 63 16 172/72 H 98 (1) Coronary artery disease Coronary Disease-Associated Artery/Lesion type: [place] artery [place] vs. transplanted heart: [place] heart Associated angina: without angina Qualified Code(s): I25.10 - Atherosclerotic heart disease of [place] coronary artery without angina pectoris (2) Hypertension Hypertension type: essential hypertension Qualified Code(s): I10 - Essential (primary) hypertension (3) Sleep apnea Sleep apnea type: obstructive Qualified Code(s): G47.33 - Obstructive sleep apnea (adult) (pediatric)
[2021-10-03] MEDS: ENOXAPARIN INJ 40 MG/0.4 ML SYR SQ SCH (20:54)
[2021-10-03] MEDS: ATORVASTATIN 40 MG TAB PO SCH (20:55)
[2021-10-03] MEDS: PRAZOSIN HCL 1 MG CAP PO SCH (20:57)
[2021-10-03] MEDS: traZODone HCL 50 MG TAB PO SCH (20:58)
[2021-10-04] MEDS: ISOSORBIDE MONO EXTENDED REL 60 MG TABCR PO SCH (08:54)
[2021-10-04] MEDS: amLODIPine BESYLATE 5 MG TAB PO SCH (08:54)
[2021-10-04] MEDS: ATENOLOL 50 MG TABLET PO SCH (08:54)
[2021-10-04] MEDS: CEFDINIR 300 MG CAP PO SCH ×2 (08:54→20:17)
[2021-10-04] MEDS: CHOLECALCIFEROL 1,000 UNITS 25 MCG TAB PO SCH (08:54)
[2021-10-04] MEDS: POTASSIUM CHLORIDE CRTAB 20 MEQ TABCR PO SCH (08:55)
[2021-10-04] MEDS: CLOPIDOGREL BISULFATE 75 MG TAB PO SCH (08:55)
[2021-10-04] MEDS: VENLAFAXINE HCL XR 75 MG CAPXR PO SCH (08:55)
[2021-10-04] MEDS: INSULIN ASPART PER UNIT SC SCH ×4 (08:58→20:15)
[2021-10-04] MEDS: INSULIN GLARGINE SOLOSTAR 100 UNITS/ML 3 ML PEN SC SCH (09:05)
--- NOTE | 2021-10-04 16:46 | Hospitalist Progress Note ---
Date of Service October 04, 2021 Assessment & Plan (1) Generalized weakness: Plan: likely 2/2 infection. Cont treatment below. (2) COVID-19: Plan: No hypoxia. CXR unremarkable. + SARS-CoV-2 PCR in ER Received COVID-19 vaccinations and 1 booster Airborne isolation Monitor for any hypoxia or respiratory symptoms and consider further treatment at that time. Repeat CXR with no acute changes. (3) Catheter-associated urinary tract infection: Plan: Urine clx 09/28 with Klebsiella aerogenes pansensitive except for Macrobid Catheter changed 10/01 and gets changed every month. S/p IV antibiotic and now on cefdinir per urine clx results. Remains afebrile and doing well. (4) Draining cutaneous sinus tract: Plan: Reported discharge from abdomen for the past 1.5 years, with increased over past several months however has not noticed any increased drainage past several days. Evaluated by surgery here in [place] who did not feel comfortable with surgery here at [facility]. Patient was evaluated at [facility] general surgery on 09/21/2021 and surgery was recommended for suspected suture granuloma, however requires cardiac clearance as outpatient when he is feeling better. CT a/p reveals thick walled seroma-no evidence of abscess and no significant pain to palpation of abdomen. (5) Acute kidney injury superimposed on chronic kidney disease: Plan: Cr 1.83->-2.3->2.2->2. lisinopril on hold and s/p IVF. Recheck intermittently (6) Superior mesenteric artery stenosis: Plan: chronic, seen on imaging. Appears to be a new diagnosis as no evidence of this in his outpatient chart and there are no previous images that mention it. However, he doesn't have abdominal pain so likely there is collateral formation. Cont to monitor this as outpatient with PCP and consider vascular consultation as outpatient if symptoms develop. Smoking is highly discouraged in this setting. (7) Neurogenic bladder: Plan: Chronic Belcher cath-changed on 09/19 at home (8) Anemia: Plan: 2/2 chronic disease. Around baseline. No overt bleeding or need for transfusion. Continue to monitor. (9) Coronary artery disease: Plan: History of multivessel disease. 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 NovoLog sliding scale per protocol (11) Hypertension: Plan: chronic, stable. Continue lisinopril, atenolol, amlodipine (12) Cerebrovascular disease: Plan: History multiple strokes in the past and now with vascular dementia. Previously on Coumadin however was discontinued secondary to history of fall with multiple injuries Continue Plavix, atorvastatin (13) Dementia: Plan: Vascular dementia--high risk for confusion in the hospital. Reorient as needed. (14) Sleep apnea: Plan: Noncompliant with CPAP (15) Tobacco use: Plan: Denies nicotine patch. Reports history of hives from patch in past Smoking cessation encouraged (16) DVT prophylaxis: Plan: Lovenox Full Code Admission and Anticipated Discharge Date Admission Date: September 28, 2021 Subjective No new issues. feels okay. no fever, chills, shortness of breath, nausea, vomiting. Physical Exam Physical Exam: General: Lying comfortably in bed, not in distress, on room air HEENT: EOMI, SEEMA, MMM Chest: Clear breath sounds bilaterally, no wheezes or crackles CVS: Regular rate and rhythm, normal heart sounds, no murmur Abdomen: Soft, non tender, not distended, normal bowel sounds Neuro: Awake, alert, oriented, conversing well, non focal Extremities: No cyanosis, clubbing or edema On belcher with tavia urine Results & Data Results & Data ([facility]) Vital Signs (Past 12 Hours) Vital Signs Temp Pulse Resp BP Pulse Ox 10/04/21 08:00 36.5 C 63 18 137/68 95 (1) Coronary artery disease Coronary Disease-Associated Artery/Lesion type: torres martinez artery [place] vs. transplanted heart: torres martinez heart Associated angina: without angina Qualified Code(s): I25.10 - Atherosclerotic heart disease of torres martinez coronary artery without angina pectoris (2) Hypertension Hypertension type: essential hypertension Qualified Code(s): I10 - Essential (primary) hypertension (3) Sleep apnea Sleep apnea type: obstructive Qualified Code(s): G47.33 - Obstructive sleep apnea (adult) (pediatric)
[2021-10-04] MEDS: ENOXAPARIN INJ 40 MG/0.4 ML SYR SQ SCH (20:16)
[2021-10-04] MEDS: PRAZOSIN HCL 1 MG CAP PO SCH (20:17)
[2021-10-04] MEDS: ATORVASTATIN 40 MG TAB PO SCH (20:24)
[2021-10-04] MEDS: traZODone HCL 50 MG TAB PO SCH (20:24)
[2021-10-04] MEDS ORDERED: INSULIN GLARGINE SOLOSTAR 100 UNITS/ML 3 ML PEN SC ONE (21:00)
[2021-10-05 08:32] LABS: Calcium 8.6 mg/dl (8.5-10.1); Creatinine Clr Calc Pharmacy 37.5 ml/min; Est GFR (African American) 36.6 ml/min; Est GFR (Non-African American) 31.6 ml/min; Magnesium 1.9 mg/dl (1.7-2.4); Potassium 4.3 mmol/L (3.5-5.1)
[2021-10-05] MEDS: CEFDINIR 300 MG CAP PO SCH (08:55)
[2021-10-05] MEDS: ATENOLOL 50 MG TABLET PO SCH (08:55)
[2021-10-05] MEDS: amLODIPine BESYLATE 5 MG TAB PO SCH (08:55)
[2021-10-05] MEDS: CLOPIDOGREL BISULFATE 75 MG TAB PO SCH (08:55)
[2021-10-05] MEDS: CHOLECALCIFEROL 1,000 UNITS 25 MCG TAB PO SCH (08:55)
[2021-10-05] MEDS: POTASSIUM CHLORIDE CRTAB 20 MEQ TABCR PO SCH (08:56)
[2021-10-05] MEDS: ISOSORBIDE MONO EXTENDED REL 60 MG TABCR PO SCH (08:56)
[2021-10-05] MEDS: VENLAFAXINE HCL XR 75 MG CAPXR PO SCH (08:56)
[2021-10-05] MEDS: INSULIN ASPART PER UNIT SC SCH ×2 (08:59→12:27)
[2021-10-05] MEDS ORDERED: INSULIN GLARGINE SOLOSTAR 100 UNITS/ML 3 ML PEN SC SCH (09:00)
--- NOTE | 2021-10-05 14:18 | Discharge Summary ---
Date of Service October 05, 2021 Admission HPI Per Admitting Provider Patient is a 65-year-old male with PMH DM II, HTN, dyslipidemia, CVA, vascular dementia, CAD, CKD III/IV, neurogenic bladder with history chronic Belcher cath, chronic anemia, MARILEE, tobacco use presented to ER with complaint of weakness starting yesterday. History obtained from patient and also with assistance from . reports that patient's baseline is oriented to person and place only. Patient usually walks with walker however was unable to walk today. He was feeling so weak that he wasn't able to smoke cigarette or drink his coffee today. Patient reports feels like has sore throat. Reports chronic dry cough that feels is from smoking. Denies SOB, chest pain. reports temperature yesterday was 99.5F. Belcher cath last changed 09/19/21. Gets changed monthly. Patient with history of drainage from umbilicus for past year and a half. Patients reports increased drainage from umbilicus has increased over past several months however has not noticed any increased drainage past several days. Changes dressing once a day however reports often soaks through the dressing. Recent CT abdomen pelvis showed large rim-enhancing fluid collection. He was evaluated by surgery here in [place] who did not feel comfortable with surgery here at [facility]. Patient was evaluated at [facility] general surgery on 09/21/2021 and surgery was recommended however needs cardiac clearance first. History cardiac cath 04/2019: Severe multivessel disease not amendable coronary intervention or surgical revascularization. Denies chills, diaphoresis, N/V/D/C, NEWMAN, dizziness, syncope, vision changes, neck pain, orthopnea, palpitations, choking, otalgia, rhinorrhea, abdominal pain, paresthesias, extremity edema, rashes, hematuria. Had 2 COVID vaccines and one booster. Denies ill contacts. In ER T37.8C, P: 78, R: 17, BP 141/71, 95% on room air. No leukocytosis, lactate: 0.6, procalcitonin negative, UA +nitrite and leuk esterace, 4+bacteria. +COVID-19 PCR. CXR unremarkable Admission Exam Per Admitting Provider General: no acute distress, WDWN Head: normocephalic, atraumatic Eyes: PERRL, EOM's intact, conjunctiva non-injected, anicteric ENT: normal inspection external ears, nose, mucous membranes moist Neck: supple, trachea midline Lungs: clear, no respiratory distress, no wheezing/rhonchi/rales CV: RRR, no pretibial edema Abd: +purulent drainage from umbilicus without surrounding skin erythema, normal BS, soft, non-tender to palpation Ext: no cyanosis, no calf tenderness Neuro: Alert, oriented to person and place only, no focal deficits noted, normal affect Skin: warm, dry Principal Diagnosis CAUTI, COVID 19 Discharge Exam General: Lying comfortably in bed, not in distress, on room air HEENT: EOMI, SEEMA, MMM Chest: Clear breath sounds bilaterally, no wheezes or crackles CVS: Regular rate and rhythm, normal heart sounds, no murmur Abdomen: Soft, non tender, not distended, normal bowel sounds Neuro: Awake, alert, oriented, conversing well, non focal Extremities: No cyanosis, clubbing or edema On belcher with tavia urine Discharge Data Allergies Allergy/AdvReac Type Severity Reaction Status Date / Time varenicline [From Chantix] Allergy Intermediate Rash Verified 09/28/21 12:53 amlodipine Allergy Unknown UNKNOWN Verified 09/28/21 12:53 bupropion Allergy Unknown UNKNOWN Verified 09/28/21 12:53 losartan Allergy Unknown UNKNOWN Verified 09/28/21 12:53 niacin Allergy Unknown UNKNOWN Verified 09/28/21 12:53 nicotine Allergy Unknown UNKNOWN Verified 09/28/21 12:53 adhesive AdvReac Mild Erythema Verified 09/28/21 12:53 Consultations 09/28/21 12:41 ED Decision to Admit Stat Ordered Studies 09/28/21 13:05 CT abd pelvis IV con only Stat Laboratory Results WBC 5.71 K/uL (4.8-10.8) 10/01/21 05:46 RBC 3.23 M/uL (4.7-6.1) L 10/01/21 05:46 Hgb 9.9 g/dL (14.0-18.0) L 10/01/21 05:46 Hct 29.5 % (42-52) L 10/01/21 05:46 MCV 91.3 fL (80-100) 10/01/21 05:46 MCH 30.7 pg (25-34) 10/01/21 05:46 MCHC 33.6 g/dL (32-36) 10/01/21 05:46 RDW Std Deviation 48.3 fL (36.4-46.3) H 10/01/21 05:46 RDW Coeff of Stephania 14.3 % (11.5-14.5) 10/01/21 05:46 Plt Count 88 K/uL (130-400) L 10/01/21 05:46 MPV 11.1 fL (7.4-10.4) H 10/01/21 05:46 Immature Gran % (Auto) 0.3 % 09/28/21 10:15 Neut % (Auto) 76.5 % 09/28/21 10:15 Lymph % (Auto) 10.1 % 09/28/21 10:15 [place] % (Auto) 9.0 % 09/28/21 10:15 Eos % (Auto) 3.8 % 09/28/21 10:15 Baso % (Auto) 0.3 % 09/28/21 10:15 Neut # (Auto) 5.08 K/uL (1.4-6.5) 09/28/21 10:15 Lymph # (Auto) 0.67 K/uL (1.2-3.4) L 09/28/21 10:15 [place] # (Auto) 0.60 K/uL (0.11-0.59) H 09/28/21 10:15 Eos # (Auto) 0.25 K/uL (0-0.5) 09/28/21 10:15 Baso # (Auto) 0.02 K/uL (0-0.2) 09/28/21 10:15 Immature Gran # (Auto) 0.02 K/uL (0.00-0.02) 09/28/21 10:15 Platelet Estimate Decreased (Normal) L 09/29/21 06:52 PT 11.9 Seconds (9.0-12.0) 09/28/21 11:08 INR 1.1 (0.9-1.1) 09/28/21 11:08 APTT 25.9 Seconds (21.0-31.0) 09/28/21 11:08 PTT Ratio 0.9 09/28/21 11:08 Sodium 134 mmol/L (136-145) L 10/05/21 06:50 Potassium 4.3 mmol/L (3.5-5.1) 10/05/21 06:50 Chloride 108 mmol/L (98-107) H 10/05/21 06:50 Carbon Dioxide 19 mmol/L (21-32) L 10/05/21 06:50 Anion Gap 7 (3-11) 10/05/21 06:50 BUN 61 mg/dl (6-23) H 10/05/21 06:50 Creatinine 2.10 mg/dl (0.6-1.4) H 10/05/21 06:50 Est Cr Clr Drug Dosing 37.5 ml/min 10/05/21 06:50 Est GFR ( Amer) 36.6 ml/min 10/05/21 06:50 Est GFR (Non-Af Amer) 31.6 ml/min 10/05/21 06:50 BUN/Creatinine Ratio 29.0 (10-20) H 10/05/21 06:50 Glucose 49 mg/dl (70-99(Fasting)) L* 10/05/21 06:50 POC Glucose 167 mg/dl (70-99) H 10/05/21 11:10 Lactate 0.4 mmol/L (0.4-2.0) 09/30/21 05:53 Calcium 8.6 mg/dl (8.5-10.1) 10/05/21 06:50 Magnesium 1.9 mg/dl (1.7-2.4) 10/05/21 06:50 Iron 30 mcg/dl (35-175) L 09/28/21 11:00 Transferrin 151 mg/dl (200-360) L 09/28/21 11:00 Ferritin 94.3 ng/ml (8-388) 09/28/21 11:00 Total Bilirubin 0.4 mg/dl (0.2-1.0) 09/28/21 10:15 AST 15 U/L (13-39) 09/28/21 11:08 ALT 22 U/L (7-52) 09/28/21 10:15 Alkaline Phosphatase 122 U/L (34-104) H 09/28/21 10:15 Troponin I High Sens 12.1 pg/ml (0-20) 09/28/21 10:15 C-Reactive Protein 2.26 mg/dl (0-0.5) H 09/28/21 11:00 Total Protein 7.2 gm/dl (6.0-8.3) 09/28/21 10:15 Albumin 3.4 gm/dl (3.4-5.0) 09/28/21 10:15 Globulin 3.8 gm/dl (2.5-4.0) 09/28/21 10:15 Albumin/Globulin Ratio 0.9 (0.9-2) 09/28/21 10:15 Vitamin B12 317 pg/ml (180-914) 09/28/21 11:00 Folate 13.01 ng/ml (>5.38) 09/28/21 11:00 Procalcitonin < 0.05 ng/ml (0-0.5) 09/28/21 11:08 Urine Color Yellow 09/28/21 10:10 Urine Appearance Cloudy (Clear) A 09/28/21 10:10 Urine pH 7.0 (4.5-7.5) 09/28/21 10:10 Ur Specific [place] 1.014 (1.000-1.030) 09/28/21 10:10 Urine Protein 2+ (Negative) H 09/28/21 10:10 Urine Glucose (UA) Negative (Negative) 09/28/21 10:10 Urine Ketones Negative (Negative) 09/28/21 10:10 Urine Blood Trace (Negative) H 09/28/21 10:10 Urine Nitrite Positive (Negative) A 09/28/21 10:10 Urine Bilirubin Negative (Negative) 09/28/21 10:10 Urine Urobilinogen Negative (Negative) 09/28/21 10:10 Ur Leukocyte Esterase 2+ (Negative) H 09/28/21 10:10 Urine WBC (Auto) >30 /hpf (0-5) H 09/28/21 10:10 Urine RBC (Auto) 0-4 /hpf (0-4) 09/28/21 10:10 U Hyaline Cast (Auto) 1-5 /lpf (0-5) 09/28/21 10:10 U Epithel Cells (Auto) 5-10 /lpf (0-5) H 09/28/21 10:10 Urine Bacteria (Auto) 4+ (Negative) H 09/28/21 10:10 Nasal Screen MRSA (PCR) Negative (Negative) 09/28/21 20:00 Anaplasma Smear See Comment 09/28/21 10:15 A. phagocytophilum DNA Negative (Negative) 09/28/21 10:15 Babesia Smear See Comment 09/28/21 10:15 Babesia microti DNA PCR Not Detected (Not Detected) 09/28/21 10:15 Lyme Disease IgG Ab Negative (Negative) 09/28/21 11:08 Lyme Disease IgM Ab Negative (Negative) 09/28/21 11:08 SARS-CoV-2 (PCR) POSITIVE (Negative) A* 09/28/21 11:09 Influenza Type A (PCR) Negative (Neg) 09/28/21 11:09 Influenza Type B (PCR) Negative (Neg) 09/28/21 11:09 RSV (RT-PCR) Negative (Neg) 09/28/21 11:09 SARS-CoV-2, RNA, NAAT POSITIVE (NEGATIVE) A* 09/28/21 11:09 Impressions Abdomen/Pelvis CT 09/28/21 13:05 CT SCAN OF THE ABDOMEN AND PELVIS WITH IV CONTRAST CLINICAL HISTORY: Fever. History of fluid collection. COMPARISON STUDY: Abdominal CT dated 08/26/2021. TECHNIQUE: Following the IV administration of 93 cc of Optiray 320, CT scan of the abdomen and pelvis is performed from the lung bases to the proximal femora. Images are reviewed in the axial, sagittal, and coronal planes. IV contrast was administered without complication. A dose lowering technique was utilized adhering to the principles of ALARA. CT DOSE: 917.37 mGycm FINDINGS: Lung bases: The heart is normal in size and without pericardial effusion. The coronary arteries and mitral annulus are densely calcified. Chronic/fibrotic change is noted at the lung bases. There is no airspace consolidation typical for pneumonia or pleural effusion. There is a small hiatal hernia. Liver: The contrast-enhanced liver is normal in size, contour, and attenuation. There is no intrahepatic biliary ductal dilatation. The hepatic veins and portal veins are patent. There is mild periportal edema. Gallbladder: Not identified and presumed surgically absent. Spleen: Normal in size and attenuation. Pancreas: Unremarkable. Adrenal glands: Unremarkable. Kidneys: The contrast enhanced kidneys demonstrate cortical atrophy and are without hydronephrosis. The kidneys enhance symmetrically. There is mild perinephric stranding. Urothelial thickening and enhancement is seen involving the renal pelvis bilaterally with surrounding infiltration. Abdominal vasculature: The abdominal aorta is normal in course and caliber notin g mild to moderate atherosclerotic calcification. An infrarenal IVC filter is in place. There is high-grade stenosis of the superior mesenteric artery seen on axial image #182. Bowel: There is moderate colonic diverticulosis without CT evidence of acute diverticulitis. There is rectosigmoid fecal retention moderate constipation. No bowel obstruction is seen. The appendix is well-visualized and normal. Peritoneum: There is no intraperitoneal free air or abdominal ascites. Lymphadenopathy: None. Pelvic viscera: The bladder is decompressed around a Belcher catheter. The bladder wall appears markedly thickened and there is pericystic infiltration. The prostate gland is mildly enlarged. The seminal vesicles are normal as visualized. Skeletal structures: The skeletal structures are osteopenic. There is mild to moderate lumbosacral spondylosis. Large posterior disc osteophyte complexes are seen at L4-L5 and L5-S1. There are healed right-sided rib fractures. No lytic or blastic lesions are seen. Soft tissues: There is a midline surgical scar. There is significant soft tissue thickening deep to the incision site with a thin fluid collection extending from the subxiphoid region to the upper pelvis. This measures approximately 14 x 2.5 x 4.5 cm. This is similar to 08/26/2021 examinations, and several calcifications suggest that this is chronic. A thin tract was collection approaches the dermal surface as seen on image #263. IMPRESSION: 1. The bladder is decompressed around a Belcher catheter and appears circumferentially thick walled with surrounding inflammation. Additionally, there is urothelial thickening and enhancement with surrounding inflammation involving the renal pelvis bilaterally. Correlate clinically and with urinalysis for evidence of cystitis/ascending urinary tract infections. 2. There is a thick-walled fluid collection within the ventral abdominal wall deep to a surgical incision site. This is similar to the 08/26/2021 examination and appears chronic, possibly representing a seroma. The sterility of this fluid cannot be assessed by imaging and clinical correlation will be essential. 3. Advanced coronary artery calcification. 4. Rectosigmoid fecal retention and moderate constipation. 5. 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 6. Additional findings as above. ACT 112: Negative or not required by law. Electronically signed by: Bentley Kelley M.D. 09/28/2021 4:22 PM Chest X-Ray 10/01/21 07:00 XR chest 1V portable CLINICAL HISTORY: covid, rule out pna COMPARISON STUDY: Chest radiograph September 28, 2021. FINDINGS: Lung volumes are normal. Lungs are clear. There is no pneumothorax or pleural effusion. Cardiac size is normal. Mediastinal contours are normal. There is no evidence for pulmonary edema. Subtle interstitial thickening is unchanged. This is chronic. IMPRESSION: No acute cardiopulmonary findings. No consolidation. ACT 112: Negative or not required by law. Electronically signed by: Jose Pereira M.D. 10/01/2021 7:24 AM Hospital Course (1) Generalized weakness: likely 2/2 infection. S/p 7 day antibiotic course for UTI and COVID (2) COVID-19: No hypoxia. CXR unremarkable. + SARS-CoV-2 PCR in ER Received COVID-19 vaccinations and 1 booster Airborne isolation Monitor for any hypoxia or respiratory symptoms and consider further treatment at that time. Repeat CXR with no acute changes. (3) Catheter-associated urinary tract infection: Urine clx 09/28 with Klebsiella aerogenes pansensitive except for Macrobid Catheter changed 10/01 and gets changed every month. S/p7 days of ABx- IV cefepime followed by cefdinir. Remains afebrile and doing well. (4) Draining cutaneous sinus tract: Reported discharge from abdomen for the past 1.5 years, with increased over past several months however has not noticed any increased drainage past several days. Evaluated by surgery here in [place] who did not feel comfortable with surgery here at [facility]. Patient was evaluated at [facility] general surgery on 09/21/2021 and surgery was recommended for suspected suture granuloma, however requires cardiac clearance as outpatient when he is feeling better. CT a/p reveals thick walled seroma-no evidence of abscess and no significant pain to palpation of abdomen. (5) Acute kidney injury superimposed on chronic kidney disease: Cr stable at 2. Cr 1.83->-2.3->2.2->2. lisinopril on hold and s/p IVF. Recheck intermittently (6) Superior mesenteric artery stenosis: chronic, seen on imaging. Appears to be a new diagnosis as no evidence of this in his outpatient chart and there are no previous images that mention it. However, he doesn't have abdominal pain so likely there is collateral formation. Cont to monitor this as outpatient with PCP and consider vascular consultation as outpatient if symptoms develop. Smoking is highly discouraged in this setting. (7) Neurogenic bladder: Chronic Belcher cath-changed on 10/01 here (8) Anemia: 2/2 chronic disease. Around baseline. No overt bleeding or need for transfusion. Continue to monitor. (9) Coronary artery disease: History of multivessel disease. Last cardiac cath 04/2019 History cardiac cath 04/2019: Severe multivessel disease not amenable to coronary intervention or surgical revascularization Denies chest pain, shortness of breath Continue Plavix, isosorbide, atorvastatin Aspirin was removed by cardiology in 2020 secondary to increased ecchymosis (10) Diabetes mellitus type 2 with complications: A1c: 7.9 in 07/2021 Having hypoglycemia intermittently in house and insulin adjusted by glycemic pharmacist. Continue lantus, SSI- adjust as indicated (11) Hypertension: chronic, stable. BP remains stable off of lisinopril- Continue atenolol, amlodipine. Resume lisinopril as indicated. (12) Cerebrovascular disease: History multiple strokes in the past and now with vascular dementia. Previously on Coumadin however was discontinued secondary to history of fall with multiple injuries Continue Plavix, atorvastatin (13) Dementia: Vascular dementia--high risk for confusion in the hospital. He has remained stable throughout my care. (14) Sleep apnea: Noncompliant with CPAP (15) Tobacco use: Denies nicotine patch. Reports history of hives from patch in past Smoking cessation encouraged (16) DVT prophylaxis: Lovenox Full Code Stable for discharge. Patient has 24/7 care at home provided by caregivers but with his COVID diagnosis, they can not resume care until isolation period is over. [place] is his primary [place] so he is christie discharged to [facility] until the isolation period is over and their caregivers can resume home service. Signed out to Dr Juan Francisco Lombardi from [facility]. I spoke to his and daughter Jercia and answered all their questions. Total Time Total Time Spent Total Time Spent (In Minutes): 40 Discharge Plan Discharge Items Patient Disposition: Transfer [facility] Reason For Visit: FEVER, WEAKNESS Discharge Diagnosis: CAUTI, Covid 19 Activity: Resume your previous activity Non-emergency contact: Primary Care Provider Call non-emergency contact if: you have any medication questions, your symptoms worsen, your pain is not controlled and you have a fever Follow-up/Referrals: Cornelio Daley DO [Primary Care Provider] - (Date & Time 10/11/2021 10:00 AM Provider Lori Daley DO Department [facility] ) Diet: Carb Consistent or DM2 and Low Sodium (2gm) Addtl Attending Provider Instructions: You have completed 7 days of antibiotic for your urine infection Your home lantus was 35 U at night but we have been decreasing it because of low blood sugar. We have further decreased it to lantus 10 U twice daily- which will further be managed by the rehab doctor. You will also need sliding scale coverage with meals We have been holding your lisinopril 40 mg daily because of your kidney numbers (they have been stable). Your blood pressure is normal without lisinopril- continue to hold- your doctor will resume as needed. You are being transferred to [facility] Recommend outpatient follow up surgery for your abdominal wound Recommend belcher catheter care. Recommend changing at least once every month. Pending Studies at Discharge: No Stand-Alone Forms: My [facility] Skilled Items Patient informed of condition?: No DNR: No Discharge Level of Care: Other Communicable Disease: Yes (Covid) Discharge Prognosis: Stable Lines: None Urinary Catheter: Yes Medications and DC Order Prescriptions: Continued cranberry 500 mg capsule 500 mg PO BID RF: 0 atorvastatin 80 mg Tablet 80 mg PO HS RF: 0 trazodone 50 mg Tablet 150 mg PO HS RF: 0 clopidogrel [Plavix] 75 mg Tablet 75 mg PO DAILY RF: 0 amlodipine 5 mg Tablet 5 mg PO DAILY RF: 0 prazosin 5 mg Capsule 5 mg PO HS RF: 0 atenolol 50 mg Tablet 100 mg PO DAILY RF: 0 potassium chloride 20 mEq Tablet Extended Release 20 meq PO DAILY RF: 0 venlafaxine 75 mg tablet 225 mg PO QAM RF: 0 isosorbide mononitrate 60 mg tablet extended release 24 hr 60 mg PO DAILY Qty: 30 RF: 6 cholecalciferol (vitamin D3) [Vitamin D3] 25 mcg (1,000 unit) Tablet 2,000 unit PO DAILY RF: 0 acetaminophen 325 mg Tablet 650 mg PO QID PRN (Reason: Pain) RF: 0 fluocinonide 0.05 % Ointment 1 applic TOPICAL BID PRN (Reason: Itching) RF: 0 triamcinolone acetonide 0.1 % Cream 1 applic TOPICAL DAILY RF: 0 Remedy Phytoplex Antifungal 2 % Ointment 1 applic TOPICAL DAILY PRN (Reason: Rash) RF: 0 hydroxyzine HCl 25 mg Tablet 25 mg PO DAILY PRN (Reason: Itching) RF: 0 ciclopirox 0.77 % cream 1 applic TOPICAL BID RF: 0 Glucose Bits 1 gram Tablet,Chewable 4 g PO USEASDIRECTD RF: 0 Changed Lantus U-100 Insulin 100 unit/mL solution 10 unit SUBCUT BID Qty: 0 RF: 0 Discontinued lisinopril 40 mg Tablet 40 mg PO DAILY RF: 0 Discharge Orders: Discharge Order (Routine); Ordered 10/05/21 Ordered By: Chava Frankel Admission Data Admit Date/Time: 09/28/21 13:59 Attending Provider: Chava Frankel Admit Provider: Rossi Rosa I. Primary Care Provider: Cornelio Daley Other Providers: [facility] ; Rossi Rosa I.
== END 2021-10-05 14:45 | DRG 698 ==
LOC: ED 09:45 → EDINP 13:59 → SUATTDRO 13:59 → 2N 18:35